=== PATIENT | male | born 1940 | race Caucasian/White ===

== ENCOUNTER 2019-08-17 13:53 | Inpatient (IN) | payer MEDICARE, BC ==
[2019-08-17] MEDS ORDERED: SODIUM CHLORIDE 0.9% 500 ML 500 ML IV STA (14:12)
[2019-08-17] MEDS ORDERED: ADENOSINE 3 MG/ML 2 ML VIAL IVP STA ×2 (14:12→14:26)
--- NOTE | 2019-08-17 14:15 | ED ---
General Adult HPI - General Chief complaint: Shortness of Breath Stated complaint: SOB Time Seen by Provider: 08/17/19 14:01 Source: patient Mode of arrival: wheelchair Limitations: no limitations - History of Present Illness Initial comments: Dictation was produced using [employer] dictation software. please excuse any grammatical, word or spelling errors. This patient was cared for during a federal and state declared state of emergency secondary to Covid 19 Chief Complaint: 79 y oMale past medical history asthma, heart failure, COPD, hypertension presents with dyspnea History of Present Illness: 79-year-old male he [facility] for his [facility] when all of a sudden he became short of breath. Patient states that he does not feel short of breath. He denies any chest pain at this time. Patient does have a history of COPD wears oxygen at home. He does also have a history of CHF. Denies any orthopnea. He states that he did feel short of breath earlier and it began acutely. He has no pain complaints. Denies any fever, chills or night sweats. Denies any coughing. The ROS documented in this emergency department record has been reviewed and confirmed by me. Those systems with pertinent positive or negative responses have been documented in the HPI. All other systems are other negative and/or noncontributory. PHYSICAL EXAM: General Impression: Alert and oriented x3, not in acute distress HEENT: Normocephalic atraumatic, extra-ocular movements intact, pupils equal and reactive to light bilaterally, mucous membranes moist. Cardiovascular: Tachycardic, heart rate 144 on the monitor Chest: Able to complete full sentences, no retractions, no tachypnea, lungs clear to auscultation bilaterally Abdomen: abdomen soft, non-tender, non-distended, no organomegaly Musculoskeletal: Pulses present and equal in all extremities, no peripheral edema Motor: no focal deficits noted Neurological: CN II-XII grossly intact, no focal motor or sensory deficits noted Skin: Intact with no visualized rashes Psych: Normal affect and mood ED course: 79-year-old male presents with chief complaint of shortness of breath as upon arrival shows heart rate of 145, O2 saturation 89% on room air. Patient wears oxygen 3 L at home. Patient is satting well with 3 L nasal cannula. Blood pressure is 91/63. EKG shows supraventricular tachycardia. Patient given adenosine for chemical cardioversion. During AV block it appeared that patient is in atrial flutter. Patient started on Cardizem.Laboratory evaluation obtained. CBC, coag panel, metabolic panel is unremarkable. Cardiac enzymes negative. Prematurity peptide is 6880. No old labs to follow a trend. Chest x-ray obtained showing pulmonary venous congestion with mild cardiomegaly. 7 for CHF. Patient is not dyspneic at this time. Does appear to be well currently. Medications are reviewed patient given 40 mg of Lasix for concern of CHF exacerbation. Patient doing well Cardizem. Patient be admitted to telemetry with cardiac consultation. Discussed patient case with Dr. Guadalupe who is willing to accept patients care. It is unclear when patient's symptoms started. Patient started on heparin. EKG interpretation: Ventricular rate 144, SVT, right bundle, QRS 112, QTc 575. No HI prolongation, no QTC prolongation, no ST or T-wave changes noted. No old EKG for comparison - Related Data Home Medications Medication Instructions Recorded Confirmed Abatacept/Maltose [Orencia] 750 mg IV DIRECTED 07/04/13 03/23/16 Albuterol Sulfate [Ventolin HFA] 1 - 2 puff INHALATION Q6H PRN 07/04/13 03/23/16 Finasteride [Proscar] 5 mg PO DAILY 07/04/13 03/23/16 Fluticasone/Salmeterol [Advair 500 mcg INHALATION BID 07/04/13 03/23/16 500-50 Diskus] Gabapentin [Neurontin] 600 mg PO QID 07/04/13 03/23/16 Ibuprofen [Motrin] 600 mg PO DIRECTED PRN 07/04/13 03/23/16 Montelukast [Singulair] 10 mg PO HS 07/04/13 03/23/16 cloNIDine HCL [Catapres] 1 cap PO DAILY 07/04/13 03/23/16 metFORMIN HCL [Glucophage] 1,000 mg PO BID 07/04/13 03/23/16 Lovastatin [Mevacor] 20 mg PO DAILY 02/19/14 03/23/16 amLODIPine [Norvasc] 2.5 mg PO DAILY 02/19/14 03/23/16 Glimepiride [Amaryl] 1 tab PO BID 12/25/14 03/23/16 valACYclovir HCL [Valtrex] 1 tab PO TID 11/25/15 03/23/16 Levothyroxine Sodium [Synthroid] 25 mcg PO DAILY 02/21/16 03/23/16 Allergies Allergy/AdvReac Type Severity Reaction Status Date / Time infliximab [From Remicade] Allergy Anaphylaxis Verified 08/17/19 13:58 Review of Systems ROS Statement: Those systems with pertinent positive or pertinent negative responses have been documented in the HPI. ROS Other: All systems not noted in ROS Statement are negative. Past Medical History Past Medical History: Asthma, Heart Failure, COPD, Diabetes Mellitus, Hyperlipidemia, Hypertension, Prostate Disorder, Rheumatoid Arthritis (RA) Additional Past Medical History / Comment(s): VERTIGO, PSORIASIS, SHINGLES 2007, SARCOIDOSIS History of Any Multi-Drug Resistant Organisms: None Reported Past Surgical History: Appendectomy Additional Past Surgical History / Comment(s): LUNG BIOPSY, TESTICLE REMOVED, R&L SHOULDER ARTHROSCOPY Past Anesthesia/Blood Transfusion Reactions: No Reported Reaction Past Psychological History: No Psychological Hx Reported Smoking Status: Never smoker - Past Family History Mother Family Medical History: Congestive Heart Failure (CHF) General Exam Limitations: no limitations Course Vital Signs 08/17/19 13:57 Temperature 98.1 F Pulse Rate 145 H Respiratory 20 Rate Blood Pressure 91/63 O2 Sat by Pulse 89 L Oximetry Medical Decision Making - Lab Data Result diagrams: 08/17/19 14:16 08/17/19 14:16 Lab Results 08/17/19 08/17/19 08/17/19 Range/Units 14:16 14:16 14:16 WBC 8.5 (3.8-10.6) k/uL RBC 4.58 (4.30-5.90) m/uL Hgb 13.1 (13.0-17.5) gm/dL Hct 42.6 (39.0-53.0) % MCV 93.0 (80.0-100.0) fL MCH 28.5 (25.0-35.0) pg MCHC 30.7 L (31.0-37.0) g/dL RDW 14.4 (11.5-15.5) % Plt Count 394 (150-450) k/uL Neutrophils % 70 % Lymphocytes % 19 % Monocytes % 7 % Eosinophils % 2 % Basophils % 1 % Neutrophils # 5.9 (1.3-7.7) k/uL Lymphocytes # 1.6 (1.0-4.8) k/uL Monocytes # 0.6 (0-1.0) k/uL Eosinophils # 0.2 (0-0.7) k/uL Basophils # 0.0 (0-0.2) k/uL Hypochromasia Slight PT 10.5 (9.0-12.0) sec INR 1.0 (<1.2) APTT 24.0 (22.0-30.0) sec Sodium 136 L (137-145) mmol/L Potassium 3.9 (3.5-5.1) mmol/L Chloride 100 (98-107) mmol/L Carbon Dioxide 23 (22-30) mmol/L Anion Gap 13 mmol/L BUN 16 (9-20) mg/dL Creatinine 0.85 (0.66-1.25) mg/dL Est GFR (CKD-EPI)AfAm >90 (>60 ml/min/1.73 sqM) Est GFR (CKD-EPI)NonAf 82 (>60 ml/min/1.73 sqM) Glucose 148 H (74-99) mg/dL Calcium 10.0 (8.4-10.2) mg/dL Magnesium 2.1 (1.6-2.3) mg/dL Total Bilirubin 0.5 (0.2-1.3) mg/dL AST 52 (17-59) U/L ALT 22 (4-49) U/L Alkaline Phosphatase 95 (38-126) U/L Troponin I (0.000-0.034) ng/mL NT-Pro-B Natriuret Pep pg/mL Total Protein 6.8 (6.3-8.2) g/dL Albumin 3.8 (3.5-5.0) g/dL 08/17/19 08/17/19 Range/Units 14:16 14:16 WBC (3.8-10.6) k/uL RBC (4.30-5.90) m/uL Hgb (13.0-17.5) gm/dL Hct (39.0-53.0) % MCV (80.0-100.0) fL MCH (25.0-35.0) pg MCHC (31.0-37.0) g/dL RDW (11.5-15.5) % Plt Count (150-450) k/uL Neutrophils % % Lymphocytes % % Monocytes % % Eosinophils % % Basophils % % Neutrophils # (1.3-7.7) k/uL Lymphocytes # (1.0-4.8) k/uL Monocytes # (0-1.0) k/uL Eosinophils # (0-0.7) k/uL Basophils # (0-0.2) k/uL Hypochromasia PT (9.0-12.0) sec INR (<1.2) APTT (22.0-30.0) sec Sodium (137-145) mmol/L Potassium (3.5-5.1) mmol/L Chloride (98-107) mmol/L Carbon Dioxide (22-30) mmol/L Anion Gap mmol/L BUN (9-20) mg/dL Creatinine (0.66-1.25) mg/dL Est GFR (CKD-EPI)AfAm (>60 ml/min/1.73 sqM) Est GFR (CKD-EPI)NonAf (>60 ml/min/1.73 sqM) Glucose (74-99) mg/dL Calcium (8.4-10.2) mg/dL Magnesium (1.6-2.3) mg/dL Total Bilirubin (0.2-1.3) mg/dL AST (17-59) U/L ALT (4-49) U/L Alkaline Phosphatase (38-126) U/L Troponin I <0.012 (0.000-0.034) ng/mL NT-Pro-B Natriuret Pep 6880 pg/mL Total Protein (6.3-8.2) g/dL Albumin (3.5-5.0) g/dL Disposition Clinical Impression: Atrial flutter Disposition: ADMITTED IP TO THIS HOSP Condition: Fair Referrals: Jim Candelario DO [REFERRING] - 1-2 days Decision Time: 15:21
[2019-08-17 14:30] LABS: Basophils % (A) 1 %; Eosinophils # (A) 0.2 k/uL (0-0.7); Eosinophils % (A) 2 %; HCT 42.6 % (39.0-53.0); HGB 13.1 gm/dL (13.0-17.5); Hypochromasia Slight; Lymphocytes # (A) 1.6 k/uL (1.0-4.8); Lymphocytes % (A) 19 %; MCH 28.5 pg (25.0-35.0); MCHC 30.7 g/dL (31.0-37.0); Mean Platelet Volume 7.8; Monocytes # (A) 0.6 k/uL (0-1.0); Monocytes % (A) 7 %; Neutrophils # (A) 5.9 k/uL (1.3-7.7); Neutrophils % (A) 70 %; Platelet Count 394 k/uL (150-450); RBC 4.58 m/uL (4.30-5.90); RDW 14.4 % (11.5-15.5); WBC 8.5 k/uL (3.8-10.6)
[2019-08-17] MEDS ORDERED: DILTIAZEM DRIP BOLUS FROM BAG 1 MG SOLN IV ONE (14:33)
[2019-08-17 14:42] LABS: ALT 22 U/L (4-49); AST 52 U/L (17-59); African American GFR (CKD) >90 (>60 ml/min/1.73 sqM); Albumin 3.8 g/dL (3.5-5.0); Alkaline Phosphatase 95 U/L (38-126); Anion Gap 13 mmol/L; Blood Urea Nitrogen 16 mg/dL (9-20); Carbon Dioxide 23 mmol/L (22-30); Chloride 100 mmol/L (98-107); Glucose 148 mg/dL (74-99); Magnesium 2.1 mg/dL (1.6-2.3); Non-African American GFR(CKD) 82 (>60 ml/min/1.73 sqM); Potassium 3.9 mmol/L (3.5-5.1); Sodium 136 mmol/L (137-145); Total Bilirubin 0.5 mg/dL (0.2-1.3); Total Protein 6.8 g/dL (6.3-8.2)
--- NOTE | 2019-08-17 14:43 | XR ---
EXAMINATION TYPE: XR chest 1V portable DATE OF EXAM: 08/17/2019 HISTORY: Shortness of breath. COMPARISON: None. TECHNIQUE: Single view of the chest is submitted. FINDINGS: Demonstrated are scattered senescent parenchymal change. Perihilar and basilar infiltrates with small effusions. Pulmonary venous congestion with mild cardiom egaly. The findings could be on the basis of congestive failure although underlying infiltrates of ot her etiology not excluded. Correlate clinically. Hilar and mediastinal structures are within normal limits. Degenerative changes are seen of the dorsal spine. IMPRESSION: 1. Perihilar and basilar infiltrates with small effusions. Pulmonary venous congestion with mild car diomegaly. The findings could be on the basis of congestive failure although underlying infiltrates o f other etiology not excluded. Correlate clinically.
[2019-08-17 14:45] LABS: Prothrombin Time 10.5 sec (9.0-12.0)
[2019-08-17] MEDS ORDERED: HEPARIN SODIUM,PORCINE 5,000 UNIT/ML 1 ML VIAL IV ONE (14:55)
[2019-08-17] MEDS ORDERED: HEPARIN SODIUM,PORCINE 5,000 UNIT/ML 1 ML VIAL IV PRN (14:55)
[2019-08-17] MEDS: DILTIAZEM 125 MG in SODIUM CHLORIDE 0.9% 100 ML IV SCH (15:02)
[2019-08-17] MEDS ORDERED: FUROSEMIDE 10 MG/ML 4 ML VIAL IV STA (15:20)
[2019-08-17] MEDS: HEPARIN SOD,PORK IN 0.45% NACL 25,000 UNIT in 0.45% NACL 1 250ML.BAG IV SCH (15:21)
[2019-08-17] MEDS ORDERED: ONDANSETRON 4 MG/2 ML VIAL IVP PRN (15:21)
[2019-08-17] MEDS ORDERED: ACETAMINOPHEN TAB 325 MG TAB PO PRN (15:21)
[2019-08-17] MEDS ORDERED: NALOXONE 0.4 MG/ML 1 ML VIAL IV PRN (15:21)
[2019-08-17] MEDS: SODIUM CHLORIDE 0.9% 1,000 ML IV SCH (15:37)
[2019-08-17] MEDS ORDERED: ALBUTEROL NEBULIZED 2.5 MG/3 ML INHALATION PRN (17:54)
--- NOTE | 2019-08-17 17:55 | P.HPIM ---
History of Present Illness This is a pleasant 79-year-old the female was sent in from infusion center where he was receiving Orencia for rheumatoid arthritis. Patient was sent in because of from tachycardia. Patient is found to be in supra ventricular tachycardia and received adenosine 2 doses after which patient converted to atrial flutter followed by in and out of atrial fibrillation. Patient was complaining of shortness of breath denied any significant orthopnea paroxysmal nocturnal dyspnea. Patient did have mildly elevated JVD chest x-ray showed bilateral pleural effusion consistent with mild pulmonary edema with elevated BNP patient received 1 dose of Lasix patient doesn't have known history of metastatic failure although isn't clear as of oxygen for sarcoidosis and rheumatoid arthritis related lung disease. Patient denied any smoking history. Patient denied any cough fever chills. Chest x-ray did not show any pneumonic process. Review of Systems REVIEW OF SYSTEMS: CONSTITUTIONAL: No fever, no malaise, no fatigue. HEENT: No recent visual problems or hearing problems. Denied any sore throat. CARDIOVASCULAR: No chest pain, orthopnea, PND, no palpitations, no syncope. PULMONARY: no cough, no hemoptysis. GASTROINTESTINAL: No diarrhea, no nausea, no vomiting, no abdominal pain. NEUROLOGICAL: No headaches, no weakness, no numbness. HEMATOLOGICAL: Denies any bleeding or petechiae. GENITOURINARY: Denies any burning micturition, frequency, or urgency. MUSCULOSKELETAL/RHEUMATOLOGICAL: Denies any joint pain, swelling, or any muscle pain. ENDOCRINE: Denies any polyuria or polydipsia. The rest of the 14-point review of systems is negative. Past Medical History Past Medical History: Asthma, Heart Failure, COPD, Diabetes Mellitus, Hyperlipidemia, Hypertension, Prostate Disorder, Rheumatoid Arthritis (RA) Additional Past Medical History / Comment(s): VERTIGO, PSORIASIS, SHINGLES 2008, SARCOIDOSIS History of Any Multi-Drug Resistant Organisms: None Reported Past Surgical History: Appendectomy Additional Past Surgical History / Comment(s): LUNG BIOPSY, TESTICLE REMOVED, R&L SHOULDER ARTHROSCOPY Past Anesthesia/Blood Transfusion Reactions: No Reported Reaction Past Psychological History: No Psychological Hx Reported Smoking Status: Never smoker - Past Family History Mother Family Medical History: Congestive Heart Failure (CHF) Medications and Allergies Home Medications Medication Instructions Recorded Confirmed Type Abatacept/Maltose [Orencia] 1 dose IV Q28D 07/04/13 08/17/19 History Albuterol Sulfate [Ventolin HFA] 2 puff INHALATION RT-QID PRN 07/04/13 08/17/19 History Montelukast [Singulair] 10 mg PO HS 07/04/13 08/17/19 History Levothyroxine Sodium [Synthroid] 25 mcg PO DAILY 02/21/16 08/17/19 History Budesonide/Formoterol Fumarate 2 puff INHALATION RT-BID 08/17/19 08/17/19 History [Symbicort 160-4.5 Mcg Inhaler] Furosemide [Lasix] 20 mg PO DAILY 08/17/19 08/17/19 History Gabapentin 600 mg PO Q6H 08/17/19 08/17/19 History Lovastatin [Mevacor] 20 mg PO HS 08/17/19 08/17/19 History glipiZIDE [Glucotrol] 5 mg PO AC-BID 08/17/19 08/17/19 History metFORMIN HCL 1,000 mg PO BID 08/17/19 08/17/19 History Allergies Allergy/AdvReac Type Severity Reaction Status Date / Time infliximab [From Remicade] Allergy Anaphylaxis Verified 08/17/19 15:42 Physical Exam Vitals: Vital Signs Temp Pulse Resp BP Pulse Ox 08/17/19 17:26 118 H 18 111/80 96 08/17/19 16:27 98.3 F 117 H 18 126/96 98 08/17/19 15:43 18 08/17/19 15:35 99.0 F 123 H 18 101/78 97 08/17/19 13:57 98.1 F 145 H 20 91/63 89 L Intake and Output 08/17/19 08/17/19 08/17/19 06:59 14:59 22:59 Other: # Voids 1 Weight 64.41 kg PHYSICAL EXAMINATION: GENERAL: The patient is alert and oriented x3, not in any acute distress. Thin built male HEENT: Pupils are round and equally reacting to light. EOMI. No scleral icterus. No conjunctival pallor. Normocephalic, atraumatic. No pharyngeal erythema. No thyromegaly. CARDIOVASCULAR: S1 and S2 present. No murmurs, rubs, or gallops. Tachycardia, regularly irregular rhythm PULMONARY: Chest is clear to auscultation, no wheezing or crackles. ABDOMEN: Soft, nontender, nondistended, normoactive bowel sounds. No palpable organomegaly. MUSCULOSKELETAL: No joint swelling or deformity. EXTREMITIES: No cyanosis, clubbing, or pedal edema. NEUROLOGICAL: Gross neurological examination did not reveal any focal deficits. SKIN: No rashes. Results CBC & Chem 7: 08/17/19 14:16 08/17/19 14:16 Labs: Abnormal Lab Results - Last 24 Hours (Table) 08/17/19 08/17/19 Range/Units 14:16 14:16 MCHC 30.7 L (31.0-37.0) g/dL Sodium 136 L (137-145) mmol/L Glucose 148 H (74-99) mg/dL Assessment and Plan Plan: -New-onset atrial fibrillation, flutter, supra to tachycardia: Patient will require anticoagulation. I do have a concern of heart failure because of which am going to hold off on Cardizem patient was started on metoprolol oral if heart rate is not controlled with metoprolol patient may to be digitalized in the prone may not be a good choice because of his history of sarcoidosis and lung disease related to sarcoidosis and had arthritis. Possible congestive heart failure possibility of systolic dysfunction unsure whether acute or chronic echocardiogram will be obtained patient will be started on low-dose of Lasix -Chronic hypoxic respiratory failure. 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 -Type 2 diabetes mellitus -Hyperlipidemia -Hypertension benign prostatic hypertrophy For above-mentioned chronic problems patient will be resumed and continued on appropriate home medications
[2019-08-17] MEDS: SYMBICORT 160-4.5 MCG INHALER INHALATION SCH (19:44)
[2019-08-17] MEDS: GABAPENTIN 300 MG CAP PO SCH ×2 (20:45→22:53)
[2019-08-17 20:52] LABS: Glucose,Whole Blood 108 mg/dL (75-99)
[2019-08-17] MEDS: metFORMIN 500 MG TAB PO SCH (21:56)
[2019-08-17] MEDS: MONTELUKAST 10 MG TAB PO SCH (21:56)
[2019-08-17] MEDS: ATORVASTATIN 10 MG TAB PO SCH (21:56)
[2019-08-17] MEDS: FUROSEMIDE 10 MG/ML 2 ML VIAL IV SCH (21:56)
[2019-08-17] MEDS: METOPROLOL TARTRATE 50 MG TAB PO SCH (21:56)
[2019-08-18 06:31] LABS: Glucose,Whole Blood 101 mg/dL (75-99)
[2019-08-18] MEDS: GABAPENTIN 300 MG CAP PO SCH ×4 (06:35→23:30)
[2019-08-18] MEDS: glipiZIDE 5 MG TAB PO SCH ×2 (06:35→16:43)
[2019-08-18] MEDS: LEVOTHYROXINE 25 MCG TAB PO SCH (06:35)
[2019-08-18] MEDS: metFORMIN 500 MG TAB PO SCH ×2 (06:35→16:41)
[2019-08-18] MEDS: SYMBICORT 160-4.5 MCG INHALER INHALATION SCH ×2 (07:15→19:43)
[2019-08-18] MEDS: FUROSEMIDE 10 MG/ML 2 ML VIAL IV SCH ×2 (09:36→20:36)
[2019-08-18] MEDS: METOPROLOL TARTRATE 50 MG TAB PO SCH ×2 (09:37→20:36)
--- NOTE | 2019-08-18 11:33 | P.CRDCN ---
History of Present Illness Consult date: 08/18/19 History of present illness: This is a 79-year-old gentleman who was receiving infusion of Orencia for his rheumatoid arthritis. Apparently he complained of having palpitations and shortness of breath. He was sent to the emergency room and he was found to be in atrial flutter with fast ventricular response. He was treated with IV adenosine and subsequently started on IV Cardizem. Patient's heart rate is controlled at this time. He denied any chest pain. No complaints of orthopnea or paroxysmal nocturnal dyspnea. He chest x-ray showed evidence of pleural effusion and right pulmonary edema. Patient had elevated BNP level.. Patient is feeling better at the time of my examination. Doesn't appear to be in acute distress. Patient had an echocardiogram today. Patient also is on anticoagulation therapy. Depending upon the LV function, we'll make consider possible cardioversion. Meanwhile patient will be continued on current medical therapy. No complaints of any fever, chills or chest pain Review of Systems As per the chart Past Medical History Past Medical History: Asthma, Heart Failure, COPD, Diabetes Mellitus, Hyperlipidemia, Hypertension, Prostate Disorder, Rheumatoid Arthritis (RA) Additional Past Medical History / Comment(s): VERTIGO, PSORIASIS, SHINGLES 2007, SARCOIDOSIS History of Any Multi-Drug Resistant Organisms: None Reported Past Surgical History: Appendectomy Additional Past Surgical History / Comment(s): LUNG BIOPSY, TESTICLE REMOVED, R&L SHOULDER ARTHROSCOPY Past Anesthesia/Blood Transfusion Reactions: No Reported Reaction Past Psychological History: No Psychological Hx Reported Smoking Status: Never smoker - Past Family History Mother Family Medical History: Congestive Heart Failure (CHF) Medications and Allergies Home Medications Medication Instructions Recorded Confirmed Type Abatacept/Maltose [Orencia] 1 dose IV Q28D 07/04/13 08/17/19 History Albuterol Sulfate [Ventolin HFA] 2 puff INHALATION RT-QID PRN 07/04/13 08/17/19 History Montelukast [Singulair] 10 mg PO HS 07/04/13 08/17/19 History Levothyroxine Sodium [Synthroid] 25 mcg PO DAILY 02/21/16 08/17/19 History Budesonide/Formoterol Fumarate 2 puff INHALATION RT-BID 08/17/19 08/17/19 History [Symbicort 160-4.5 Mcg Inhaler] Furosemide [Lasix] 20 mg PO DAILY 08/17/19 08/17/19 History Gabapentin 600 mg PO Q6H 08/17/19 08/17/19 History Lovastatin [Mevacor] 20 mg PO HS 08/17/19 08/17/19 History glipiZIDE [Glucotrol] 5 mg PO AC-BID 08/17/19 08/17/19 History metFORMIN HCL 1,000 mg PO BID 08/17/19 08/17/19 History Allergies Allergy/AdvReac Type Severity Reaction Status Date / Time infliximab [From Remicade] Allergy Anaphylaxis Verified 08/17/19 15:42 Physical Exam Vitals: Vital Signs Temp Pulse Pulse Resp BP BP Pulse Ox 08/18/19 07:15 99 08/18/19 03:36 98.5 F 90 18 98/67 98 08/18/19 00:00 98.2 F 78 20 106/74 100 08/17/19 20:00 98.5 F 114 H 20 116/75 96 08/17/19 17:26 118 H 18 111/80 96 08/17/19 16:27 98.3 F 117 H 18 126/96 98 08/17/19 15:43 18 08/17/19 15:35 99.0 F 123 H 18 101/78 97 08/17/19 13:57 98.1 F 145 H 20 91/63 89 L Intake and Output 08/17/19 08/18/19 08/18/19 22:59 06:59 14:59 Intake Total 57.71 308.83 Output Total 400 Balance 57.71 -91.17 Intake: Intake, IV Titration 57.71 68.83 Amount Heparin Sod,Pork in 0.45% 57.71 68.83 NaCl 25,000 unit In 0.45 % NaCl 1 250ml.bag @ 12 UNITS/KG/HR 7.729 mls/hr IV .Q24H [facility] Rx#: [id number] Oral 240 Output: Urine 400 Other: Voiding Method Urinal Urinal Diaper Diaper # Voids 1 2 1 Weight 64.41 kg 63 kg GENERAL EXAM: Patient is alert and oriented and doesn't appear to be in any acute distress HEENT: Normocephalic. Normal reaction of pupils, equal size, normal range of extraocular motion. No erythema or exudates in the throat. NECK: Mild JVD CHEST: No chest wall deformity. LUNGS: Diminished breath sounds. HEART: S1 and S2 normal. Irregular rhythm ABDOMEN: No hepatosplenomegaly, normal bowel sounds, no guarding or rigidity. SKIN: No rashes CENTRAL NERVOUS SYSTEM: No focal deficits. EXTREMITIES: No cyanosis, clubbing or edema. Results 08/17/19 14:16 08/17/19 14:16 Cardiac Enzymes 08/17/19 08/17/19 Range/Units 14:16 14:16 AST 52 (17-59) U/L Troponin I <0.012 (0.000-0.034) ng/mL Coagulation 08/17/19 08/17/19 08/18/19 Range/Units 14:16 22:03 05:37 PT 10.5 (9.0-12.0) sec APTT 24.0 35.2 H 42.4 H (22.0-30.0) sec CBC 08/17/19 Range/Units 14:16 WBC 8.5 (3.8-10.6) k/uL RBC 4.58 (4.30-5.90) m/uL Hgb 13.1 (13.0-17.5) gm/dL Hct 42.6 (39.0-53.0) % Plt Count 394 (150-450) k/uL Comprehensive Metabolic Panel 08/17/19 Range/Units 14:16 Sodium 136 L (137-145) mmol/L Potassium 3.9 (3.5-5.1) mmol/L Chloride 100 (98-107) mmol/L Carbon Dioxide 23 (22-30) mmol/L BUN 16 (9-20) mg/dL Creatinine 0.85 (0.66-1.25) mg/dL Glucose 148 H (74-99) mg/dL Calcium 10.0 (8.4-10.2) mg/dL AST 52 (17-59) U/L ALT 22 (4-49) U/L Alkaline Phosphatase 95 (38-126) U/L Total Protein 6.8 (6.3-8.2) g/dL Albumin 3.8 (3.5-5.0) g/dL Current Medications Generic Name Dose Route Start Last Admin Trade Name Freq PRN Reason Stop Dose Admin Acetaminophen 650 mg 08/17/19 15:21 Tylenol Tab PO Q6HR PRN Mild Pain or Fever > 100.5 Albuterol Sulfate 2.5 mg 08/17/19 17:54 Ventolin Nebulized INHALATION RT-QID PRN Shortness Of Breath Atorvastatin Calcium 10 mg 08/17/19 21:00 08/17/19 21:56 Lipitor PO 10 mg HS WILDA Administration Budesonide/Formoterol Fumarate 2 puff 08/17/19 20:00 08/18/19 07:15 Symbicort 160-4.5 Mcg Inhaler INHALATION 2 puff RT-BID WILDA Administration Furosemide 20 mg 08/17/19 21:00 08/18/19 09:36 Lasix IV 20 mg Q12HR WILDA Administration Gabapentin 600 mg 08/17/19 18:00 08/18/19 06:35 Neurontin PO 600 mg Q6HR WILDA Administration Glipizide 5 mg 08/18/19 07:30 08/18/19 06:35 Glucotrol PO 5 mg AC-BID WILDA Administration Heparin Sodium (Porcine) 0 unit 08/17/19 14:55 Heparin IV PER PROTOCOL PRN Low PTT Protocol Diltiazem HCl 125 mg/ Sodium 125 mls @ 5 mls/hr 08/17/19 14:45 08/17/19 15:02 Chloride IV 5 mg/hr .Q24H WILDA 5 mls/hr Administration 5 MG/HR Heparin Sodium/Sodium Chloride 250 mls @ 7.729 mls/hr 08/17/19 15:00 08/18/19 06:27 25,000 unit/ Sodium Chloride IV 16 units/kg/hr .Q24H WILDA 10.306 mls/hr Titration Protocol 12 UNITS/KG/HR Sodium Chloride 1,000 mls @ 20 mls/hr 08/17/19 15:30 08/17/19 15:37 Saline 0.9% IV 20 mls/hr .Q24H WILDA Administration Levothyroxine Sodium 25 mcg 08/18/19 06:30 08/18/19 06:35 Synthroid PO 25 mcg DAILY@0630 WILDA Administration Metformin HCl 1,000 mg 08/17/19 21:00 08/18/19 06:35 Glucophage PO 1,000 mg BID-W/MEALS WILDA Administration Metoprolol Tartrate 50 mg 08/17/19 21:00 08/18/19 09:37 Lopressor PO 50 mg BID WILDA Administration Montelukast Sodium 10 mg 08/17/19 21:00 08/17/19 21:56 Singulair PO 10 mg HS WILDA Administration Naloxone HCl 0.2 mg 08/17/19 15:21 Narcan IV Q2M PRN Opioid Reversal Ondansetron HCl 4 mg 08/17/19 15:21 Zofran IVP Q8HR PRN Nausea And Vomiting Intake and Output 08/17/19 08/18/19 08/18/19 22:59 06:59 14:59 Intake Total 57.71 308.83 Output Total 400 Balance 57.71 -91.17 Intake: Intake, IV Titration 57.71 68.83 Amount Heparin Sod,Pork in 0.45% 57.71 68.83 NaCl 25,000 unit In 0.45 % NaCl 1 250ml.bag @ 12 UNITS/KG/HR 7.729 mls/hr IV .Q24H [facility] Rx#: [id number] Oral 240 Output: Urine 400 Other: Voiding Method Urinal Urinal Diaper Diaper # Voids 1 2 1 Weight 64.41 kg 63 kg 08/17/19 14:16 08/17/19 14:16 - Imaging and Cardiology Comment: Chest x-ray showed evidence of possible CHF EKG Interpretations (text) Atrial flutter with rapid ventricular response Assessment and Plan (1) Acute systolic CHF (congestive heart failure) Current Visit: Yes Status: Acute Code(s): I50.21 - ACUTE SYSTOLIC (CONGESTIVE) HEART FAILURE SNOMED Code(s): 000181501 (2) Atrial flutter Current Visit: Yes Status: Acute Code(s): I48.92 - UNSPECIFIED ATRIAL FLUTTER SNOMED Code(s): 7807520 (3) Rheumatoid arthritis Current Visit: Yes Status: Acute Code(s): M06.9 - RHEUMATOID ARTHRITIS, UNSPECIFIED SNOMED Code(s): 31504028 Plan: Patient is on IV Cardizem and anticoagulation. We'll get an echocardiogram done. We will start him on by mouth beta lencho. May consider LOGAN cardioversion.
[2019-08-18 12:26] LABS: Glucose,Whole Blood 57 mg/dL (75-99)
[2019-08-18 13:29] LABS: Glucose,Whole Blood 74 mg/dL (75-99)
[2019-08-18] MEDS ORDERED: ALPRAZolam 0.25 MG TAB PO PRN (14:55)
[2019-08-18] MEDS ORDERED: IPRATROPIUM-ALBUTEROL 3 ML NEB INHALATION PRN (14:55)
[2019-08-18] MEDS ORDERED: HYDROcodone/APAP 5-325MG 1 EACH TAB PO PRN (14:55)
[2019-08-18] MEDS: DILTIAZEM 125 MG in SODIUM CHLORIDE 0.9% 100 ML IV SCH (16:29)
[2019-08-18] MEDS: HEPARIN SOD,PORK IN 0.45% NACL 25,000 UNIT in 0.45% NACL 1 250ML.BAG IV SCH ×2 (16:30→16:49)
--- NOTE | 2019-08-18 16:36 | PN ---
PROGRESS NOTE DATE OF SERVICE: This 79-year-old gentleman with atrial flutter with fast ventricular rate was treated with IV Cardizem and adenosine. The patient was also suspected of CHF also. The most recent chest x-ray which was reviewed by me showed evidence of increased bronchial vascularity and some atelectasis. The patient is being closely monitored. PAST MEDICAL HISTORY: Reviewed. REVIEW OF SYSTEMS: Could not be taken as the patient is confused. CURRENT MEDICATIONS: 1. Tylenol. 2. Ventolin. 3. Symbicort. 4. Diltiazem. 5. Lasix. 6. Glucotrol. 7. Heparin. 8. Lopressor. 9. Singulair. 10.Narcan. 11.Zofran. PHYSICAL EXAM: Patient is alert, oriented x2. Pulse 102, blood pressure 97/66, respiration 16, temperature 97.5, pulse ox 99% on 3 liters. HEENT: Conjunctivae normal. Oral mucosa moist. NECK: No jugular venous distention. CARDIOVASCULAR: S1, S2, muffled. RESPIRATORY: Diminished breath sounds at the bases. Bilateral scattered rhonchi and crackles. ABDOMEN: Soft, nontender. LEGS: No edema, no swelling. NERVOUS SYSTEM: No focal deficits. LABS: Sodium 136, glucose 108. ASSESSMENT: 1. New onset atrial flutter status post Cardizem drip. 2. Possible congestive heart failure exacerbation, ejection fraction unknown. 3. Change in mental status and metabolic encephalopathy. 4. Possible bilateral atelectasis. 5. Hyponatremia. 6. History of asthma. 7. History of congestive heart failure .. 8. History of chronic obstructive pulmonary disease. 9. Diabetes mellitus type 2 uncontrolled with hypoglycemia. 10.Hyperlipidemia. 11.Hypertension. 12.History of prostate disease. 13.History of rheumatoid arthritis. 14.History of vertigo. 15.History of psoriasis. 16.History of shingles. 17.History of sarcoidosis. 18.History of lung biopsy. 19.History of degenerative joint disease. 20.FULL CODE. RECOMMENDATIONS: In this 79-year-old gentleman who presented with multiple complex medical issues, we will monitor the patient closely. Continue the current management. I would recommend empiric antibiotics and bronchodilators. Otherwise UA. Guarded prognosis because of multiple complex medical issues. Further recommendations to follow. MMODL / IJN: [id number] /
[2019-08-18 17:07] LABS: Glucose,Whole Blood 95 mg/dL (75-99)
[2019-08-18] MEDS: SODIUM CHLORIDE 0.9% 1,000 ML IV SCH (17:33)
[2019-08-18 20:25] LABS: Glucose,Whole Blood 139 mg/dL (75-99)
[2019-08-18] MEDS: ATORVASTATIN 10 MG TAB PO SCH (20:36)
[2019-08-18] MEDS: MONTELUKAST 10 MG TAB PO SCH (20:36)
[2019-08-18] MEDS: IPRATROPIUM-ALBUTEROL 3 ML NEB INHALATION SCH (20:53)
[2019-08-19 06:22] LABS: Basophils # (A) 0.1 k/uL (0-0.2); Basophils % (A) 1 %; Eosinophils # (A) 0.2 k/uL (0-0.7); Eosinophils % (A) 3 %; HCT 40.7 % (39.0-53.0); HGB 12.8 gm/dL (13.0-17.5); Hypochromasia Slight; Lymphocytes # (A) 2.1 k/uL (1.0-4.8); Lymphocytes % (A) 28 %; MCH 29.5 pg (25.0-35.0); MCHC 31.5 g/dL (31.0-37.0); MCV 93.8 fL (80.0-100.0); Monocytes # (A) 0.5 k/uL (0-1.0); Monocytes % (A) 7 %; Neutrophils # (A) 4.4 k/uL (1.3-7.7); Neutrophils % (A) 59 %; Platelet Count 323 k/uL (150-450); RBC 4.34 m/uL (4.30-5.90); RDW 14.2 % (11.5-15.5); WBC 7.4 k/uL (3.8-10.6)
[2019-08-19 06:27] LABS: Glucose,Whole Blood 118 mg/dL (75-99)
[2019-08-19] MEDS: LEVOTHYROXINE 25 MCG TAB PO SCH (06:32)
[2019-08-19] MEDS: metFORMIN 500 MG TAB PO SCH ×2 (06:33→17:15)
[2019-08-19] MEDS: GABAPENTIN 300 MG CAP PO SCH ×4 (06:33→23:17)
[2019-08-19] MEDS: glipiZIDE 5 MG TAB PO SCH ×2 (06:33→17:15)
[2019-08-19] MEDS: PANTOPRAZOLE 40 MG TABLET PO SCH (06:34)
[2019-08-19 06:58] LABS: African American GFR (CKD) >90 (>60 ml/min/1.73 sqM); Anion Gap 9 mmol/L; Blood Urea Nitrogen 19 mg/dL (9-20); Calcium 8.8 mg/dL (8.4-10.2); Carbon Dioxide 24 mmol/L (22-30); Chloride 100 mmol/L (98-107); Glucose 106 mg/dL (74-99); Non-African American GFR(CKD) >90 (>60 ml/min/1.73 sqM); Potassium 4.2 mmol/L (3.5-5.1); Sodium 133 mmol/L (137-145)
[2019-08-19] MEDS: IPRATROPIUM-ALBUTEROL 3 ML NEB INHALATION SCH ×3 (07:18→20:50)
[2019-08-19] MEDS: SYMBICORT 160-4.5 MCG INHALER INHALATION SCH ×2 (07:35→20:50)
[2019-08-19] MEDS: METOPROLOL TARTRATE 50 MG TAB PO SCH ×2 (09:18→23:17)
[2019-08-19] MEDS: FUROSEMIDE 10 MG/ML 2 ML VIAL IV SCH ×2 (09:18→23:17)
--- NOTE | 2019-08-19 10:41 | P.PN ---
Subjective Progress Note Date: 08/26/19 This is a 79-year-old gentleman was admitted to the hospital with complaints of shortness of breath. Patient was found to be in atrial flutter. Currently patient is on metoprolol 50 mg by mouth twice a day. His heart rate is varying between 60-90. His blood pressure is running low. Complaints of exertional shortness of breath. Echocardiogram showed an ejection fraction about 40-45%. We'll continue current medical therapy. We'll repeat chest x-ray. If patient continues to have low blood pressure and shortness of breath in spite of rate control, we may consider cardioversion with LOGAN. Meanwhile, continue current medical therapy Objective - Vital Signs Vital signs: Vital Signs Temp 97.7 F 08/19/19 03:57 Pulse 63 08/19/19 08:00 Resp 16 08/19/19 08:00 BP 86/59 08/19/19 08:00 Pulse Ox 90 L 08/19/19 08:00 Intake & Output 08/18/19 08/19/19 08/19/19 18:59 06:59 18:59 Intake Total 106.839 Balance 106.839 Weight 54 kg Intake: Intake, IV Titration 106.839 Amount Heparin Sod,Pork in 0.45% 106.839 NaCl 25,000 unit In 0.45 % NaCl 1 250ml.bag @ 12 UNITS/KG/HR 7.729 mls/hr IV .Q24H [facility] Rx#: [id number] Other: Voiding Method Urinal Diaper Diaper # Voids 1 2 1 # Bowel Movements 1 - Exam GENERAL EXAM: Patient is alert and oriented and doesn't appear to be in any acu te distress HEENT: Normocephalic. Normal reaction of pupils, equal size, normal range of extraocular motion. No erythema or exudates in the throat. NECK: No masses, no nuchal rigidity. CHEST: No chest wall deformity. LUNGS: Equal air entry with no crackles or wheeze. HEART: S1 and S2 normal. Irregular rhythm ABDOMEN: No hepatosplenomegaly, normal bowel sounds, no guarding or rigidity. SKIN: No rashes CENTRAL NERVOUS SYSTEM: No focal deficits. EXTREMITIES: No cyanosis, clubbing or edema. - Labs CBC & Chem 7: 08/19/19 05:58 08/19/19 05:58 Labs: Abnormal Lab Results - Last 24 Hours (Table) 08/18/19 08/18/19 08/18/19 Range/Units 12:17 12:37 13:28 Hgb (13.0-17.5) gm/dL APTT 44.9 H (22.0-30.0) sec Sodium (137-145) mmol/L Creatinine (0.66-1.25) mg/dL Glucose (74-99) mg/dL POC Glucose (mg/dL) 57 L 74 L (75-99) mg/dL 08/18/19 08/19/19 08/19/19 Range/Units 20:23 05:58 05:58 Hgb 12.8 L (13.0-17.5) gm/dL APTT (22.0-30.0) sec Sodium 133 L (137-145) mmol/L Creatinine 0.61 L (0.66-1.25) mg/dL Glucose 106 H (74-99) mg/dL POC Glucose (mg/dL) 139 H (75-99) mg/dL 08/19/19 08/19/19 Range/Units 05:58 06:25 Hgb (13.0-17.5) gm/dL APTT 50.4 H (22.0-30.0) sec Sodium (137-145) mmol/L Creatinine (0.66-1.25) mg/dL Glucose (74-99) mg/dL POC Glucose (mg/dL) 118 H (75-99) mg/dL Assessment and Plan (1) Acute systolic CHF (congestive heart failure) Current Visit: Yes Status: Acute Code(s): I50.21 - ACUTE SYSTOLIC (CONGESTIVE) HEART FAILURE SNOMED Code(s): 431820338 (2) Atrial flutter Current Visit: Yes Status: Acute Code(s): I48.92 - UNSPECIFIED ATRIAL FLUTTER SNOMED Code(s): 3761602 (3) Rheumatoid arthritis Current Visit: Yes Status: Acute Code(s): M06.9 - RHEUMATOID ARTHRITIS, UNSPECIFIED SNOMED Code(s): 51123122 Plan: He still complains of exertional shortness of breath. Heart rate is controlled between 60 and 90. He is on anti-cognition therapy. He patient continues to symptomatic, may consider LOGAN cardioversion. His LV function by echo is 40-45%
[2019-08-19 11:20] VITALS: BMI 18.1
[2019-08-19 11:49] LABS: Glucose,Whole Blood 92 mg/dL (75-99)
--- NOTE | 2019-08-19 16:22 | PN ---
PROGRESS NOTE DATE OF SERVICE: 08/19/2019 This 79-year-old gentleman was admitted with atrial flutter with fast ventricular rate also on Cardizem and Adenosine. Patient suspected of CHF also. The most recent chest x-ray which was reviewed personally by me showed significant bilateral lesions. Cardiology planning a LOGAN on Wednesday. No chest pain. No palpitations. Past medical history reviewed. REVIEW OF SYSTEMS: CARDIOVASCULAR SYSTEM: As mentioned. RESPIRATORY: As mentioned earlier. GI no nausea. no dysuria. Nervous system: No numbness or weakness. Current medications are reviewed and include: 1. Tylenol. 2. [place] 5 mg. 3. DuoNeb. 4. Xanax. 5. Lipitor. 6. Symbicort. 7. Rocephin. 8. Cardizem. 9. Lasix. 10.Neurontin. 11.Glucotrol. 12.Heparin. 13.Synthroid. 14.Glucophage. 15.Lopressor. 16.Singular. 17.Narcan. 18.Zofran. 19.Protonix. PHYSICAL EXAM: Patient is alert and oriented x3. Pulse 89. Blood pressure 82/52. Respirations 16. Temperature normal. Pulse ox 99% on 3 L. HEENT: Conjunctivae normal. Oral mucosa moist. NECK is no jugular venous distention. No carotid bruit. No lymph node enlargement. CARDIOVASCULAR: S1, S2 muffled. RESPIRATORY: Breath sounds diminished in the bases. A few scattered rhonchi and crackles. ABDOMEN: Soft, nontender. LEGS are no edema. No swelling. NERVOUS SYSTEM: No focal deficits. LABS: WBC 7.5, hemoglobin 12.8. APTT 50.5. Sodium is 133. ASSESSMENT: 1. New onset atrial flutter, status post Cardizem drip. 2. Possible congestive heart failure acute exacerbation, ejection fraction unknown. 3. Change in mental status with acute metabolic encephalopathy. 4. Possible bilateral atelectasis, rule out pneumonia, possibly gram-negative. 5. Hyponatremia. 6. History of asthma. 7. History of congestive heart failure. 8. History of chronic obstructive pulmonary disease. 9. Diabetes type 2 uncontrolled with hypoglycemia. 10.Hyperlipidemia. 11.Hypertension. 12.History of prostate disease. 13.History of rheumatoid arthritis. 14.History of vertigo. 15.History of psoriasis. 16.History of shingles. 17.History of sarcoidosis. 18.History of lung biopsy. 19.History of degenerative joint disease. 20.FULL CODE. RECOMMENDATIONS AND DISCUSSION: In this 79-year-old gentleman who presented with multiple complex medical issues, we will monitor the patient closely. Continue the current medications, symptomatic and continue with current the bronchodilators. Continue with empiric antibiotics. Otherwise, closely follow with Cardiology. Possible LOGAN. Otherwise rate controlled, anticoagulation. The patient is on IV heparin. Guarded prognosis because of multiple complex medical issues. I would recommend repeat labs and further recommendations to follow.has been taken. Official report is pending at this time. MMODL / IJN: [id number] / ANDERSON
[2019-08-19 16:38] LABS: Glucose,Whole Blood 93 mg/dL (75-99)
[2019-08-19] MEDS: HEPARIN SOD,PORK IN 0.45% NACL 25,000 UNIT in 0.45% NACL 1 250ML.BAG IV SCH (17:14)
[2019-08-19 20:45] LABS: Glucose,Whole Blood 122 mg/dL (75-99)
[2019-08-19] MEDS: DILTIAZEM 125 MG in SODIUM CHLORIDE 0.9% 100 ML IV SCH (20:55)
[2019-08-19] MEDS: ATORVASTATIN 10 MG TAB PO SCH (21:38)
[2019-08-19] MEDS: MONTELUKAST 10 MG TAB PO SCH (21:38)
[2019-08-19] MEDS: SODIUM CHLORIDE 0.9% 1,000 ML IV SCH (21:38)
[2019-08-20 06:07] LABS: Basophils % (A) 1 %; Eosinophils # (A) 0.2 k/uL (0-0.7); Eosinophils % (A) 3 %; HCT 39.2 % (39.0-53.0); HGB 12.4 gm/dL (13.0-17.5); Hypochromasia Moderate; Lymphocytes # (A) 1.8 k/uL (1.0-4.8); Lymphocytes % (A) 28 %; MCH 29.7 pg (25.0-35.0); MCHC 31.6 g/dL (31.0-37.0); MCV 93.9 fL (80.0-100.0); Mean Platelet Volume 8.1; Monocytes # (A) 0.4 k/uL (0-1.0); Monocytes % (A) 7 %; Neutrophils # (A) 3.9 k/uL (1.3-7.7); Neutrophils % (A) 60 %; Platelet Count 319 k/uL (150-450); RBC 4.17 m/uL (4.30-5.90); WBC 6.5 k/uL (3.8-10.6)
[2019-08-20 06:08] LABS: Glucose,Whole Blood 60 mg/dL (75-99)
[2019-08-20] MEDS: LEVOTHYROXINE 25 MCG TAB PO SCH (06:10)
[2019-08-20] MEDS: GABAPENTIN 300 MG CAP PO SCH ×4 (06:10→23:31)
[2019-08-20] MEDS: PANTOPRAZOLE 40 MG TABLET PO SCH (06:11)
[2019-08-20 06:28] LABS: Glucose,Whole Blood 54 mg/dL (75-99)
[2019-08-20 06:43] LABS: African American GFR (CKD) >90 (>60 ml/min/1.73 sqM); Anion Gap 8 mmol/L; Blood Urea Nitrogen 20 mg/dL (9-20); Carbon Dioxide 23 mmol/L (22-30); Chloride 101 mmol/L (98-107); Glucose 62 mg/dL (74-99); Non-African American GFR(CKD) 88 (>60 ml/min/1.73 sqM); Potassium 4.3 mmol/L (3.5-5.1); Sodium 132 mmol/L (137-145)
[2019-08-20 06:46] LABS: Glucose,Whole Blood 143 mg/dL (75-99)
[2019-08-20] MEDS: SYMBICORT 160-4.5 MCG INHALER INHALATION SCH ×2 (08:23→19:57)
[2019-08-20] MEDS: IPRATROPIUM-ALBUTEROL 3 ML NEB INHALATION SCH ×3 (08:23→19:57)
[2019-08-20] MEDS: FUROSEMIDE 10 MG/ML 2 ML VIAL IV SCH ×2 (08:39→21:11)
[2019-08-20] MEDS: metFORMIN 500 MG TAB PO SCH ×2 (08:39→17:19)
[2019-08-20] MEDS: METOPROLOL TARTRATE 50 MG TAB PO SCH ×2 (08:39→21:10)
[2019-08-20] MEDS: glipiZIDE 5 MG TAB PO SCH ×2 (08:39→17:19)
--- NOTE | 2019-08-20 10:55 | P.PN ---
Subjective Progress Note Date: 08/20/19 This is a 79-year-old gentleman was admitted to the hospital with complaints of shortness of breath. Patient was found to be in atrial flutter. Currently patient is on metoprolol 50 mg by mouth twice a day. His heart rate is varying between 60-90. His blood pressure is running low. Complaints of exertional shortness of breath. Echocardiogram showed an ejection fraction about 40-45%. We'll continue current medical therapy. We'll repeat chest x-ray. If patient continues to have low blood pressure and shortness of breath in spite of rate control, we may consider cardioversion with LOGAN. Meanwhile, continue current medical therapy. 08/20/2019: This patient is relatively stable. Complaints of nausea and mild shortness of breath. Doesn't appear to be in acute distress. His heart rate is well controlled, but he continues to be in atrial flutter. Is on heparin. He could be constricted to switch to by mouth anticoagulation therapy. Patient may benefit from LOGAN cardioversion. We'll keep him nothing by mouth for the procedure for tomorrow. Further recommendations will depend upon the critical course Objective - Vital Signs Vital signs: Vital Signs Temp 98.0 F 08/20/19 03:32 Pulse 98 08/20/19 03:32 Resp 16 08/20/19 03:32 BP 102/65 08/20/19 03:32 Pulse Ox 99 08/20/19 03:32 Intake & Output 08/19/19 08/20/19 08/20/19 18:59 06:59 18:59 Intake Total 490 636.258 Output Total 450 Balance 490 -450 636.258 Weight 54 kg 63.7 kg Intake: Intake, IV Titration 250 160.258 Amount Heparin Sod,Pork in 0.45% 250 160.258 NaCl 25,000 unit In 0.45 % NaCl 1 250ml.bag @ 12 UNITS/KG/HR 7.729 mls/hr IV .Q24H [facility] Rx#: [id number] Oral 240 476 Output: Urine 450 Other: Voiding Method Diaper # Voids 1 1 # Bowel Movements 1 1 - Exam GENERAL EXAM: Patient is alert and oriented and doesn't appear to be in any acute distress HEENT: Normocephalic. Normal reaction of pupils, equal size, normal range of extraocular motion. No erythema or exudates in the throat. NECK: No masses, no nuchal rigidity. CHEST: No chest wall deformity. LUNGS: Equal air entry with no crackles or wheeze. HEART: S1 and S2 normal. Irregular rhythm ABDOMEN: No hepatosplenomegaly, normal bowel sounds, no guarding or rigidity. SKIN: No rashes CENTRAL NERVOUS SYSTEM: No focal deficits. EXTREMITIES: No cyanosis, clubbing or edema. - Labs CBC & Chem 7: 08/20/19 05:52 08/20/19 05:52 Labs: Abnormal Lab Results - Last 24 Hours (Table) 08/19/19 08/20/19 08/20/19 Range/Units 20:44 05:52 05:52 RBC 4.17 L (4.30-5.90) m/uL Hgb 12.4 L (13.0-17.5) gm/dL APTT (22.0-30.0) sec Sodium 132 L (137-145) mmol/L Glucose 62 L (74-99) mg/dL POC Glucose (mg/dL) 122 H (75-99) mg/dL 08/20/19 08/20/19 08/20/19 Range/Units 06:07 06:27 06:45 RBC (4.30-5.90) m/uL Hgb (13.0-17.5) gm/dL APTT (22.0-30.0) sec Sodium (137-145) mmol/L Glucose (74-99) mg/dL POC Glucose (mg/dL) 60 L 54 L 143 H (75-99) mg/dL 08/20/19 Range/Units 07:03 RBC (4.30-5.90) m/uL Hgb (13.0-17.5) gm/dL APTT 100.7 H* (22.0-30.0) sec Sodium (137-145) mmol/L Glucose (74-99) mg/dL POC Glucose (mg/dL) (75-99) mg/dL Assessment and Plan (1) Acute systolic CHF (congestive heart failure) Current Visit: Yes Status: Acute Code(s): I50.21 - ACUTE SYSTOLIC (CONGESTIVE) HEART FAILURE SNOMED Code(s): 581141828 (2) Atrial flutter Current Visit: Yes Status: Acute Code(s): I48.92 - UNSPECIFIED ATRIAL FLUTTER SNOMED Code(s): 4521358 (3) Rheumatoid arthritis Current Visit: Yes Status: Acute Code(s): M06.9 - RHEUMATOID ARTHRITIS, UNSPECIFIED SNOMED Code(s): 08903924 Plan: Patient is relatively stable. May consider to switching to by mouth anticoagulation. We'll keep him nothing by mouth for possible LOGAN cardioversion tomorrow
[2019-08-20 11:59] LABS: Glucose,Whole Blood 76 mg/dL (75-99)
--- NOTE | 2019-08-20 15:19 | XR ---
EXAMINATION TYPE: XR chest 2V DATE OF EXAM: 08/20/2019 COMPARISON: August 17, 2019 HISTORY: Short of breath TECHNIQUE: FINDINGS: There is poor inspiration. There is patchy airspace infiltrates and atelectasis in both low er lobes. There is some pulmonary vascular mild congestion. There is bilateral shoulder prosthesis. IMPRESSION: There is evidence of combined congestive heart failure and bilateral patchy pneumonia and atelectasis that is overall not significantly different than last exam.
[2019-08-20 16:55] LABS: Glucose,Whole Blood 74 mg/dL (75-99)
[2019-08-20 17:16] LABS: Glucose,Whole Blood 66 mg/dL (75-99)
[2019-08-20 17:34] LABS: Glucose,Whole Blood 76 mg/dL (75-99)
[2019-08-20 20:45] LABS: Glucose,Whole Blood 143 mg/dL (75-99)
[2019-08-20] MEDS: SODIUM CHLORIDE 0.9% 1,000 ML IV SCH ×2 (21:08)
[2019-08-20] MEDS: ATORVASTATIN 10 MG TAB PO SCH (21:10)
[2019-08-20] MEDS: MONTELUKAST 10 MG TAB PO SCH (21:10)
[2019-08-20] MEDS: HEPARIN SOD,PORK IN 0.45% NACL 25,000 UNIT in 0.45% NACL 1 250ML.BAG IV SCH (21:11)
--- NOTE | 2019-08-20 22:18 | CT ---
EXAMINATION TYPE: CT chest wo con DATE OF EXAM: 08/20/2019 COMPARISON: None HISTORY: pneumonia CT DLP: 351 mGycm Automated exposure control for dose reduction was used. Images were obtained from the thoracic inlet to the diaphragm with no contrast. There is moderate patchy airspace infiltrate and atelectasis in the mid and lower lung crane. Heart is enlarged. There is coronary artery calcification. Thoracic aorta is atheromatous. Ascending aorta measures 3.8 cm. There is irregular pleural thickening and calcification at the posterior lung bases. There is no mediastinal adenopathy. There are no hilar masses. There are calcified granulomata at th e pulmonary pam. The bony thorax is intact. There is spurring in the thoracic spine. Sternum is intact. IMPRESSION: Extensive pulmonary infiltrates and atelectasis. Bilateral pleural plaque and thickening at the lung bases. Old granulomatous disease. Small calcified gallstones are noted. Pulmonary infiltrates most likely inflammatory.
[2019-08-21] MEDS: DILTIAZEM 125 MG in SODIUM CHLORIDE 0.9% 100 ML IV SCH (03:19)
--- NOTE | 2019-08-21 04:00 | PN ---
PROGRESS NOTE DATE OF SERVICE: 08/20/2019 This 79-year-old gentleman admitted with new onset atrial flutter slated to have a LOGAN. The patient also had CHF acute exacerbation. Chest x-ray showed bilateral . Patient is being closely monitored. PAST MEDICAL HISTORY: Reviewed. REVIEW OF SYSTEMS: CARDIOVASCULAR SYSTEM: As mentioned earlier. RESPIRATORY SYSTEM: As mentioned earlier. GI: No nausea. : No dysuria. NERVOUS SYSTEM: No numbness or weakness. CURRENT MEDICATIONS: 1. Tylenol. 2. [place]. 3. DuoNeb. 4. Lipitor. 5. Symbicort. 6. Rocephin. 7. Cardizem. 8. Neurontin. 9. Glucotrol. 10.Heparin. 11.Glucophage. 12.Singulair. 13.Narcan. 14.Zofran. 15.Protonix. Doses are reviewed. PHYSICAL EXAMINATION: Patient is alert and oriented x3. Pulse 73, blood pressure 93/62, respirations 16, temperature normal, pulse ox 95% on 3 L. HEENT: Conjunctivae normal. NECK: No jugular venous distention. CARDIOVASCULAR: S1, S2 muffled. RESPIRATORY: Breath sounds diminished at the bases. A few scattered rhonchi and crackles. ABDOMEN: Soft, nontender. LEGS: No edema, no swelling. NERVOUS SYSTEM: No focal deficits. LABS: WBC 6.5, hemoglobin 12.4. APTT 47.8. Sodium 132. Glucose noted. ASSESSMENT: 1. New onset atrial flutter, status post Cardizem drip. 2. Congestive heart failure acute exacerbation, ejection fraction unknown. 3. Bilateral lung lesions, rule out pneumonia. 4. Change in mental status, acute metabolic encephalopathy. 5. Hyponatremia. 6. History of asthma. 7. Possible gram-negative pneumonia. 8. History of congestive heart failure. 9. History of chronic obstructive pulmonary disease. 10.Diabetes mellitus type 2, uncontrolled with hypoglycemia. 11.Hyperlipidemia. 12.Hypertension. 13.History of prostate disease. 14.History of rheumatoid arthritis. 15.History of vertigo. 16.History of psoriasis. 17.History of shingles. 18.History of sarcoidosis. 19.History of lung biopsy. 20.History of degenerative joint disease. 21.FULL CODE. RECOMMENDATIONS AND DISCUSSION: Recommend to continue current medications, continues symptomatic treatment. Otherwise I would also recommend a CT scan of the chest to complete the workup. Guarded prognosis because of multiple complex medical issues. Further recommendations to follow. Repeat labs will be ordered. MMODL / IJN: [id number] / ANDERSON
[2019-08-21 05:54] LABS: Glucose,Whole Blood 99 mg/dL (75-99)
[2019-08-21] MEDS: GABAPENTIN 300 MG CAP PO SCH ×2 (06:03→14:31)
[2019-08-21] MEDS: PANTOPRAZOLE 40 MG TABLET PO SCH (06:04)
[2019-08-21] MEDS: LEVOTHYROXINE 25 MCG TAB PO SCH (06:05)
[2019-08-21 07:05] LABS: Basophils % (A) 1 %; Eosinophils # (A) 0.2 k/uL (0-0.7); Eosinophils % (A) 3 %; HCT 39.5 % (39.0-53.0); HGB 12.5 gm/dL (13.0-17.5); Hypochromasia Moderate; Lymphocytes # (A) 1.9 k/uL (1.0-4.8); Lymphocytes % (A) 24 %; MCH 29.6 pg (25.0-35.0); MCHC 31.6 g/dL (31.0-37.0); MCV 93.7 fL (80.0-100.0); Mean Platelet Volume 8.3; Monocytes # (A) 0.5 k/uL (0-1.0); Monocytes % (A) 6 %; Neutrophils % (A) 64 %; Platelet Count 336 k/uL (150-450); RBC 4.21 m/uL (4.30-5.90); WBC 7.9 k/uL (3.8-10.6)
[2019-08-21 07:21] LABS: African American GFR (CKD) >90 (>60 ml/min/1.73 sqM); Anion Gap 8 mmol/L; Blood Urea Nitrogen 23 mg/dL (9-20); Carbon Dioxide 23 mmol/L (22-30); Chloride 98 mmol/L (98-107); Glucose 105 mg/dL (74-99); Non-African American GFR(CKD) 88 (>60 ml/min/1.73 sqM); Potassium 4.5 mmol/L (3.5-5.1); Sodium 129 mmol/L (137-145)
[2019-08-21] MEDS: METOPROLOL TARTRATE 50 MG TAB PO SCH (07:46)
[2019-08-21] MEDS: FUROSEMIDE 10 MG/ML 2 ML VIAL IV SCH (07:46)
[2019-08-21] MEDS: SYMBICORT 160-4.5 MCG INHALER INHALATION SCH (08:14)
[2019-08-21] MEDS: IPRATROPIUM-ALBUTEROL 3 ML NEB INHALATION SCH ×2 (08:15→11:33)
[2019-08-21] MEDS: metFORMIN 500 MG TAB PO SCH (08:45)
[2019-08-21] MEDS: glipiZIDE 5 MG TAB PO SCH (08:45)
[2019-08-21] MEDS ORDERED: LACTATED RINGERS 1,000 ML IV ONE (10:30)
[2019-08-21 11:00] VITALS: TEMP 97.8
[2019-08-21] MEDS ORDERED: BENZOCAINE SPRAY 1 CAN TOPICAL ONE ×2 (11:06→11:12)
[2019-08-21] MEDS ORDERED: LIDOCAINE 1% INJ 10MG/ML (20 ML MDV) ONE (11:11)
[2019-08-21] MEDS ORDERED: PROPOFOL 10 MG/ML 20 ML VIAL IV ONE (11:11)
[2019-08-21] MEDS ORDERED: ATROPINE SULFATE 0.1 MG/ML 10ML SYRINGE ONE (11:18)
[2019-08-21] MEDS ORDERED: SODIUM BICARB 8.4% 50 ML SYR (1 MEQ/ML) ONE (11:18)
[2019-08-21] MEDS ORDERED: EPINEPHrine 10 ML SYRINGE (0.1 MG/ML) ONE (11:18)
[2019-08-21] MEDS ORDERED: DEXTROSE 50% SYRINGE 50 ML IVP ONE (11:18)
--- NOTE | 2019-08-21 11:57 | P.TEE ---
Indications for Procedure(s): Atrial flutter Date of Procedure: 08/21/19 Preoperative Diagnosis: Atrial flutter Postoperative Diagnosis: Atrial flutter Procedure(s) Performed: LOGAN Description of Procedure(s): This 79-year-old gentleman was admitted to the hospital with the newly detected atrial flutter associated with hypotension and shortness of breath. Patient is advised to have cardioversion. Patient was brought to the recovery room. Patient was prepped and draped in the usual fashion. Patient was given IV sedation by department of anesthesia. A lubricated Omni probe was introduced in the oropharynx and was advanced into the esophagus. Multiple views were obtained. Patient became bradycardic and hypotensive at the end of the procedure. He came asystolic requiring resuscitation. Patient received chest compressions and IV Epinephrine.After 5-10 minutes of resuscitation, patient is a pulse and blood pressure. Patient is being transferred to intensive care unit. No cardioversion was performed. Findings: The aortic valve is slightly restricted with a valve area about 1.5 cm. No regurgitation noted. Mitral valve showed mild to moderate regurgitation. No clot in the left atrial appendage. No PFO. Saline contrast bubble injection was also performed. LV function is severely impaired. There is biatrial enlargement. Right ventricle is dilated. Final impression: No clot in the left atrial appendage. Left ankle function is severely impaired. Could not proceed with cardioversion because of cardiac arrest and resuscitation. Family is notified
[2019-08-21 11:58] LABS: Glucose,Whole Blood 127 mg/dL (75-99)
[2019-08-21 12:21] LABS: Basophils # (A) 0.1 k/uL (0-0.2); Basophils % (A) 1 %; Eosinophils # (A) 0.2 k/uL (0-0.7); Eosinophils % (A) 2 %; HCT 39.5 % (39.0-53.0); HGB 12.7 gm/dL (13.0-17.5); Hypochromasia Moderate; Lymphocytes # (A) 4.4 k/uL (1.0-4.8); Lymphocytes % (A) 37 %; MCHC 32.1 g/dL (31.0-37.0); MCV 93.5 fL (80.0-100.0); Mean Platelet Volume 8.8; Monocytes # (A) 0.7 k/uL (0-1.0); Monocytes % (A) 6 %; Neutrophils # (A) 6.2 k/uL (1.3-7.7); Neutrophils % (A) 53 %; Platelet Count 201 k/uL (150-450); RBC 4.23 m/uL (4.30-5.90); RDW 13.9 % (11.5-15.5); WBC 11.7 k/uL (3.8-10.6)
[2019-08-21] MEDS ORDERED: CISATRACURIUM 2 MG/ML 5 ML VIAL IV ONE ×2 (12:41→12:43)
[2019-08-21] MEDS ORDERED: propofoL 100 ML IV ONE (12:41)
[2019-08-21 12:46] LABS: African American GFR (CKD) >90 (>60 ml/min/1.73 sqM); Anion Gap 9 mmol/L; Blood Urea Nitrogen 22 mg/dL (9-20); Calcium 8.5 mg/dL (8.4-10.2); Carbon Dioxide 21 mmol/L (22-30); Chloride 99 mmol/L (98-107); Glucose 171 mg/dL (74-99); Non-African American GFR(CKD) 88 (>60 ml/min/1.73 sqM); Potassium 4.1 mmol/L (3.5-5.1); Sodium 129 mmol/L (137-145)
[2019-08-21 12:58] LABS: ABG Base Excess -12.8 mmol/L; ABG HCO3 17 mmol/L (21-25); ABG Oxygen Saturation 90.6 % (94-97); ABG PCO2 54 mmHg (35-45); ABG PO2 85 mmHg (83-108); ABG TCO2 19 mmol/L (19-24)
[2019-08-21 13:00] LABS: Allen Test Performed? no
[2019-08-21] MEDS ORDERED: NOREPINEPHRINE 32 MG in SODIUM CHLORIDE 0.9% 218 ML IV SCH (13:15)
[2019-08-21] MEDS: EPINEPHrine 4 MG in DEXTROSE 5% IN WATER 250 ML IV SCH ×6 (13:16→15:31)
[2019-08-21] MEDS: SODIUM CHLORIDE 0.9% 1,000 ML IV SCH (13:20)
--- NOTE | 2019-08-21 13:31 | XR ---
EXAMINATION TYPE: XR chest 1V portable DATE OF EXAM: 08/21/2019 COMPARISON: Prior chest x-ray 08/20/2019 HISTORY: Congestive heart failure, post code TECHNIQUE: Single frontal view of the chest is obtained. FINDINGS: Endotracheal tube and NG tube have been placed in the interval. Left subclavian central ve nous catheter is noted with the distal tip over the right atrium. No evident pneumothorax or pleural effusion. Patient is rotated. Heart size is likely stable. Perihilar vascular indistinctness is prese nt, there is prominence of interstitium. IMPRESSION: Interval intubation. Expiratory rotated exam. There may be progression of airspace disea se.
[2019-08-21 14:40] LABS: ALT 27 U/L (4-49); AST 74 U/L (17-59); African American GFR (CKD) >90 (>60 ml/min/1.73 sqM); Albumin 1.7 g/dL (3.5-5.0); Alkaline Phosphatase 77 U/L (38-126); Anion Gap 17 mmol/L; Blood Urea Nitrogen 18 mg/dL (9-20); Carbon Dioxide 12 mmol/L (22-30); Chloride 101 mmol/L (98-107); Glucose 340 mg/dL (74-99); Magnesium 1.9 mg/dL (1.6-2.3); Non-African American GFR(CKD) 87 (>60 ml/min/1.73 sqM); Potassium 5.1 mmol/L (3.5-5.1); Sodium 130 mmol/L (137-145); Total Bilirubin 0.1 mg/dL (0.2-1.3); Total Protein 3.3 g/dL (6.3-8.2)
[2019-08-21 14:45] LABS: HCT 35.4 % (39.0-53.0); HGB 10.2 gm/dL (13.0-17.5); Hypochromasia Marked; MCH 28.7 pg (25.0-35.0); MCHC 28.9 g/dL (31.0-37.0); Mean Platelet Volume 8.1; Platelet Count 193 k/uL (150-450); RBC 3.56 m/uL (4.30-5.90)
[2019-08-21 14:48] LABS: MCV 99.4 fL (80.0-100.0)
[2019-08-21 14:57] LABS: ABG Base Excess -20.1 mmol/L; ABG HCO3 11 mmol/L (21-25); ABG Oxygen Saturation 82.1 % (94-97); ABG PCO2 46 mmHg (35-45); ABG PO2 71 mmHg (83-108); ABG TCO2 13 mmol/L (19-24)
[2019-08-21 15:03] LABS: Allen Test Performed? no
[2019-08-21] MEDS ORDERED: SODIUM BICARB 8.4% 50 ML SYR (1 MEQ/ML) IV STA (15:05)
[2019-08-21] MEDS ORDERED: DEXTROSE 5% IN WATER 1,000 ML with SODIUM BICARB (1 MEQ/ML) 150 ML IV SCH (15:15)
[2019-08-21] MEDS ORDERED: PIPERACILLIN-TAZOBACTAM 3.375 GM in SODIUM CHLORIDE 0.9% 100 ML IVPB SCH (16:00)
[2019-08-21 17:13] VITALS: BP 83/62; PULSE 0; RESP 0
--- NOTE | 2019-08-21 17:25 | PN ---
PROGRESS NOTE DATE OF SERVICE: 08/21/2019 This is an 79-year-old gentleman admitted with atrial flutter, also had CHF. The patient underwent LOGAN today, no clot in the left atrial appendage is noted. The patient underwent a cardiac arrest in the cathode maker and the patient had multiple cardiac arrest and subsequently CPR was done and the patient subsequently mechanically intubated and admitted to ICU at this time. The patient unable to give a coherent history and the patient also had developed asystole, prolonged pauses developing resuscitation. Patient initially had bradycardia and given atropine. The patient underwent chest compressions and IV heparin. The pulse and blood pressure returned. The patient is in ICU at this time. Cardioversion could not be done because of the above mentioned reason. The patient will be closely in the ICU. Patient on mechanical vent settings are noted. PAST MEDICAL HISTORY: Reviewed. REVIEW OF SYSTEMS: Could not be taken. CURRENT MEDICATIONS: Revived and include: Tylenol p.r.n., DuoNeb q.i.d. and p.r.n., Lipitor, Rocephin 1 g daily, epinephrine, Neurontin, heparin, Synthroid, singular, Narcan, Zofran, Protonix, propofol. PHYSICAL EXAM: Patient is mechanically sedated. Pulse is 70, blood pressure ntd, respiration 18, temperature 97.2, pulse ox is 100% on mechanical ventilation. HEENT: Conjunctivae normal. Oral mucosa moist. NECK: No jugular venous distention. No lymph node enlargement. CARDIOVASCULAR: S1, S2. RESPIRATION: Breath sounds diminished at the bases, a few scattered rhonchi. ABDOMEN: Soft. NERVOUS SYSTEM: The patient is mechanically intubated and sedated. LABS: WBC 7.2, hemoglobin 12.7, sodium is 130 and AST 74, albumin is 1.7. ASSESSMENT: 1. Atrial flutter with fast ventricular rate, status post LOGAN. 2. Acute cardiorespiratory arrest and bradycardia, possibly secondary to coronary artery disease. 3. Acute hypoxic respiratory failure, on mechanical ventilation. 4. Congestive heart failure acute exacerbation with acute on chronic systolic dysfunction with severe impairment of the LV function. 5. Bilateral pleural plaques and extensive bilateral pneumonia, possibly gram- negative. 6. Change in mental status and acute metabolic encephalopathy, multifactorial. 7. Hyponatremia. 8. History of asthma. 9. History of congestive heart failure with chronic systolic dysfunction. 10.History of chronic obstructive pulmonary disease. 11.Diabetes mellitus type 2, uncontrolled with hypoglycemia. 12.Hyperlipidemia. 13.Hypertension. 14.History of prostate disease. 15.History of rheumatoid arthritis. 16.History of vertigo. 17.History of psoriasis. 18.History of shingles. 19.History of sarcoidosis. 20.History of lung biopsy. 21.History of degenerative joint disease. 22.NO CODE, NO CPR, NO VENT. RECOMMENDATION: In this 79-year-old gentleman who presented with multiple complex medical issues, will monitor the patient closely, continue with the current management and treatment. Otherwise at this time, the patient on mechanical ventilation. Closely monitor. The patient also received no epinephrine. The most recent chest x-ray showed bilateral lesions, some combination, possibly combination of CHF and COPD. Will continue to monitor. LOGAN findings are noted. Cardioversion could not be done. Prognosis guarded because of multiple complex medical issues. Further recommendations to follow. MMWESLEYL / MARKUSN: [id number] / MTDSerenity
--- NOTE | 2019-08-21 18:32 | P.PN ---
Subjective Progress Note Date: 08/21/19 79-year-old male who was scheduled to have a LOGAN with cardioversion in the postanesthesia recovery unit. Patient was seen preprocedure was alert and oriented 3 with no changes in mental status since his hospitalization. He was admitted to the hospital for a trip fibrillation and shortness of breath. He was attempted on chemical cardioversion with amiodarone and Cardizem however had persistent atrial flutter. Plan today was to evaluate for clot and left atrial appendage and to cardiovert if none was identified. Procedure was started with 40 mg of propofol (per nurse formal service waiter) and patient placed in left lateral position. I was not present for the duration of the study however after discus chase with the nurse formal service waiter providing care for the case the patient was hemodynamically stable, ventilating, cooperative for the procedure. The study took a total of 3 minutes, the probe was removed and patient was attempted to be placed in the supine position for the cardioversion is a patient was still in atrial flutter. During that movement to the supine position patient began to develop a bradycardia arrhythmia, and a and an anesthesia stat was called overhead. When I entered the postanesthesia recovery unit, chest compressions were being performed by another provider, the patient was being mask ventilated. He was informed that patient was given a gram of atropine because of the bradycardia arrhythmia and then entered asystole. Standard ACLS protocol was in process, I went to secure the airway with an 8.0 mm endotracheal tube under direct laryngoscopy. At that point continuous chest compressions were being given ventilation every 6 seconds. Patient remained pulseless for 7 minutes and after 3 rounds of ACLS with 3 mg of epinephrine give her in total. Patient was then found to have strong femoral and carotid pulses. Transthoracic echocardiography showed severely depressed left ventricular function. I contacted the intensive care physician and inform them of the events. A bed was assigned the patient however prior to transferring patient again went into a bradycardia arrhythmia, ACLS was started again after no pulse was obtained. pulseless electrical activity was identified and CPR was continued again for 2 cycles. Patient wasn't started on a vasopressor once return of spontaneous circulation was achieved. Patient's blood sugar was checked at 127, he was not hypothermic, hypotensive and no overt lab abnormalities were attributed to the cause of the cardiac arrest. At no point was the patient defibrillated as she was not in a shockable rhythm. Patient was then transferred to ICU in critical condition. Objective - Vital Signs Vital signs: Vital Signs Temp 97.8 F 08/21/19 10:51 Pulse 0 L 08/21/19 17:00 Resp 0 L 08/21/19 17:00 BP 83/62 08/21/19 13:50 Pulse Ox 94 L 08/21/19 10:51 Intake & Output 08/20/19 08/21/19 08/21/19 18:59 06:59 18:59 Intake Total 876.258 615.196 3711.537 Output Total 800 910 175 Balance 76.258 -943.752 6718.537 Weight 64.7 kg 64.7 kg Intake: Intake, IV Titration 160.258 443.539 5708.537 Amount Dextrose 5% in Water 1, 125 000 ml @ 125 mls/hr IV . Q9H12M WILDA with Sodium Bicarb (1 Meq/ml) 150 ml Rx#:[id number] EPINEPHrine 4 mg In 506.682 Dextrose 5% in Water 250 ml @ 0 MCG/KG/MIN IV .Q0M WILDA Rx#:[id number] Heparin Sod,Pork in 0.45% 160.258 58.305 55.013 NaCl 25,000 unit In 0.45 % NaCl 1 250ml.bag @ 12 UNITS/KG/HR 7.729 mls/hr IV .Q24H WILDA Rx#: [id number] Norepinephrine 32 mg In 34.842 Sodium Chloride 0.9% 218 ml @ 0.05 MCG/KG/MIN 1. 516 mls/hr IV .Q24H WILDA Rx#:[id number] Sodium Chloride 0.9% 1, 160 1000 000 ml @ 20 mls/hr IV . Q24H WILDA Rx#:[id number] Oral 716 Output: Urine 800 910 175 Other: Voiding Method Diaper Urinal Indwelling Catheter Diaper # Voids 1 ABP, PAP, CO, CI - Last Documented Arterial Blood Pressure - Labs CBC & Chem 7: 08/21/19 13:57 08/21/19 13:57 Labs: Abnormal Lab Results - Last 24 Hours (Table) 08/20/19 08/21/19 08/21/19 Range/Units 20:44 06:33 06:33 WBC (3.8-10.6) k/uL RBC 4.21 L (4.30-5.90) m/uL Hgb 12.5 L (13.0-17.5) gm/dL Hct (39.0-53.0) % MCHC (31.0-37.0) g/dL APTT (22.0-30.0) sec ABG pH (7.35-7.45) ABG pCO2 (35-45) mmHg ABG pO2 (83-108) mmHg ABG HCO3 (21-25) mmol/L ABG Total CO2 (19-24) mmol/L ABG O2 Saturation (94-97) % Sodium 129 L (137-145) mmol/L Carbon Dioxide (22-30) mmol/L BUN 23 H (9-20) mg/dL Glucose 105 H (74-99) mg/dL POC Glucose (mg/dL) 143 H (75-99) mg/dL Calcium (8.4-10.2) mg/dL Total Bilirubin (0.2-1.3) mg/dL AST (17-59) U/L Total Protein (6.3-8.2) g/dL Albumin (3.5-5.0) g/dL 08/21/19 08/21/19 08/21/19 Range/Units 06:33 11:56 12:07 WBC 11.7 H (3.8-10.6) k/uL RBC 4.23 L (4.30-5.90) m/uL Hgb 12.7 L (13.0-17.5) gm/dL Hct (39.0-53.0) % MCHC (31.0-37.0) g/dL APTT 34.8 H (22.0-30.0) sec ABG pH (7.35-7.45) ABG pCO2 (35-45) mmHg ABG pO2 (83-108) mmHg ABG HCO3 (21-25) mmol/L ABG Total CO2 (19-24) mmol/L ABG O2 Saturation (94-97) % Sodium (137-145) mmol/L Carbon Dioxide (22-30) mmol/L BUN (9-20) mg/dL Glucose (74-99) mg/dL POC Glucose (mg/dL) 127 H (75-99) mg/dL Calcium (8.4-10.2) mg/dL Total Bilirubin (0.2-1.3) mg/dL AST (17-59) U/L Total Protein (6.3-8.2) g/dL Albumin (3.5-5.0) g/dL 08/21/19 08/21/19 08/21/19 Range/Units 12:07 12:56 13:57 WBC (3.8-10.6) k/uL RBC 3.56 L (4.30-5.90) m/uL Hgb 10.2 L (13.0-17.5) gm/dL Hct 35.4 L (39.0-53.0) % MCHC 28.9 L (31.0-37.0) g/dL APTT (22.0-30.0) sec ABG pH 7.10 L* (7.35-7.45) ABG pCO2 54 H (35-45) mmHg ABG pO2 (83-108) mmHg ABG HCO3 17 L (21-25) mmol/L ABG Total CO2 (19-24) mmol/L ABG O2 Saturation 90.6 L (94-97) % Sodium 129 L (137-145) mmol/L Carbon Dioxide 21 L (22-30) mmol/L BUN 22 H (9-20) mg/dL Glucose 171 H (74-99) mg/dL POC Glucose (mg/dL) (75-99) mg/dL Calcium (8.4-10.2) mg/dL Total Bilirubin (0.2-1.3) mg/dL AST (17-59) U/L Total Protein (6.3-8.2) g/dL Albumin (3.5-5.0) g/dL 08/21/19 08/21/19 08/21/19 Range/Units 13:57 14:52 14:55 WBC (3.8-10.6) k/uL RBC (4.30-5.90) m/uL Hgb (13.0-17.5) gm/dL Hct (39.0-53.0) % MCHC (31.0-37.0) g/dL APTT >200.0 H* (22.0-30.0) sec ABG pH 7.00 L* (7.35-7.45) ABG pCO2 46 H (35-45) mmHg ABG pO2 71 L (83-108) mmHg ABG HCO3 11 L (21-25) mmol/L ABG Total CO2 13 L (19-24) mmol/L ABG O2 Saturation 82.1 L (94-97) % Sodium 130 L (137-145) mmol/L Carbon Dioxide 12 L (22-30) mmol/L BUN (9-20) mg/dL Glucose 340 H (74-99) mg/dL POC Glucose (mg/dL) (75-99) mg/dL Calcium 7.0 L (8.4-10.2) mg/dL Total Bilirubin 0.1 L (0.2-1.3) mg/dL AST 74 H (17-59) U/L Total Protein 3.3 L (6.3-8.2) g/dL Albumin 1.7 L (3.5-5.0) g/dL
--- NOTE | 2019-08-21 20:56 | CONS ---
CONSULTATION PULMONARY/CRITICAL CARE CONSULTATION: DATE OF SERVICE: 08/21/2019 REASON FOR CONSULTATION: Cardiopulmonary arrest, ICU management and ventilator management. This is an 79-year-old gentleman with a history of severe COPD. He apparently also suffers from heart failure, hypertension and other medical problems. He apparently presented to the emergency room on August 16 with complaints of increasing shortness of breath. The patient was apparently receiving some sort of infusion in an outside hospital when he became suddenly short of breath. He apparently denied any chest pain. He does have a history of COPD and does use oxygen . Most of his doctors are up in the [facility] area. He does see a pipe stem sawyer in [place] and also a trim sawyer in [place]. Anyway, he apparently states that the shortness of breath began acutely. He does have chronic shortness of breath secondary to his underlying COPD. He had no fever or chills. There was no coughing. There was no phlegm production. Anyway, the patient was admitted to the hospital by the ER physician with a diagnosis of atrial flutter. The patient apparently was taken down to the surgical area today for a transesophageal echocardiogram and apparently cardioversion. He got through the transesophageal echocardiogram, at which time the patient started having bradycardia. The patient ended up having a cardiopulmonary arrest and was resuscitated for about 6 minutes. He received epinephrine, did not require any shocks. He was intubated at that time and transferred to the ICU. On transfer to the ICU he was apparently having cardiopulmonary arrest and the patient was moved into room 261. There he was resuscitated for another 10 or 12 minutes or so. Anyway, I did have a chance to speak to his . She understands the severity of the situation. I was able to put a left subclavian triple-lumen catheter in and a right femoral arterial line. The patient tolerated both procedures well. Current vent settings include the assist-control mode rate of 26, tidal volume is 400, FiO2 100%, PEEP of 5. Blood gases will be noted. The patient was on IV fluids and high-dose epinephrine. CURRENT MEDICATIONS: Current home medications are reviewed. They include Orencia, albuterol inhaler, Proscar, Advair, Neurontin, Motrin, Singulair, Catapres, Glucophage, Mevacor, Norvasc, Amaryl, Valtrex and Synthroid. ALLERGIES: ALLERGIES include INFLIXIMAB. MEDICAL HISTORY: Medical history includes rheumatoid arthritis, sarcoidosis, hyperlipidemia, diabetes, hypertension, COPD, heart failure, asthma, vertigo, psoriasis and shingles. SURGICAL HISTORY: Surgical history includes appendectomy. He has also had a lung biopsy, a testicle removed, and right and left shoulder arthroscopy. SOCIAL HISTORY: Positive for previous heavy tobacco use. Does not smoke currently. Apparently no significant alcohol use or illicit drug use. FAMILY HISTORY: Positive for mother with congestive heart failure. REVIEW OF SYSTEMS: Review of systems cannot be obtained. The patient is currently sedated, paralyzed, intubated and on mechanical ventilation. PHYSICAL EXAMINATION: VITAL SIGNS: Current vital signs are reviewed. Temperature 97.8, heart rate 96 and irregular, respiratory rate 26. Blood pressure is about 85/66. Saturations are in the mid 90s. GENERAL APPEARANCE: Appears in no acute distress. Currently sedated. HEENT: Examination is grossly unremarkable. He has an orally placed endotracheal tube and NG tube. NECK: Supple. There is a left subclavian triple-lumen catheter. CARDIOVASCULAR: Examination reveals a regular rhythm and rate. Heart rate about 105. S1, S2 normal. Heart sounds are distant. No distinct murmur. LUNGS: Lungs reveal diffuse coarse rhonchi. Breath sounds equal. ABDOMEN: Soft. No bowel sounds. EXTREMITIES: Intact. No edema. SKIN: Without rash. NEUROLOGIC: Neurologic examination cannot be adequately assessed. A chest x-ray was done. It shows a properly placed subclavian catheter. Endotracheal tube is above the tracheal cuong. There are diffuse bilateral infiltrates. A chest CT was done yesterday. It shows extensive pulmonary infiltrates and atelectasis; bilateral pleural plaques and thickening of the lung bases. There is old granulomatous disease. LABS: Reviewed. White count 11.7, hemoglobin 12.7, hematocrit 39.5, platelet count 301,000. Blood gases on AC 20 375, 100% 5 of PEEP show a PO2 of 85, pCO2 of 54, and a pH of 7.10. Sodium 129, potassium 4.1, chloride 99, CO2 21. Anion gap is 9. BUN and creatinine were 22 and 0.72. Current medications are reviewed. He is on Tylenol, epinephrine drip, Rocephin, IV heparin, levothyroxine, updrafts and Diprivan for sedation. ASSESSMENT: 1. Status post cardiopulmonary arrest shortly after a transesophageal echocardiogram, with a total of about 16 to 20 minutes of resuscitation and eventual return of spontaneous circulation. 2. Atrial flutter/fibrillation, with anticipated transesophageal echocardiogram and cardioversion today. 3. History of severe oxygen-dependent chronic obstructive pulmonary disease from previous tobacco use. 4. History of asthma. 5. History of congestive heart failure. 6. History of diabetes mellitus. 7. Hyperlipidemia. 8. History of hypertension. 9. History of rheumatoid arthritis. 10.History of vertigo. 11.History of psoriasis. 12.History of shingles. 13.History of inactive sarcoidosis. PLAN: Currently the patient has a central line and an arterial line. He was intubated by Anesthesia. He is currently on a high dose of epinephrine for blood pressure support. Blood gases recently done. Vent changes have been made. Prognosis is very poor. I did speak to the patient's . Propofol for sedation. The patient did receive one dose of Nimbex prior to the procedures. The procedures went well. Chest x-ray shows a well placed subclavian catheter and an endotracheal tube which is above the tracheal cuong. Will continue to follow. MMODL / IJN: [id number] /
--- NOTE | 2019-08-21 22:44 | PCN ---
PROCEDURE NOTE PROCEDURE: Right femoral arterial line placement. Indications: Hemodynamic monitoring. Need for frequent blood draws and blood gas monitoring. OPERATORS: 1. Jacky Marinelli M.D. 2. Brittanie Padilla. A time-out was completed verifying correct patient, procedure, site, positioning, and implant(s) or special equipment if applicable. Fabrice's test was performed to ensure adequate perfusion. The patient's right groin was prepped and draped in sterile fashion. 1% Lidocaine was used to anesthetize the area. An 18G Arrow arterial line was introduced into the femoral artery. The catheter was threaded over the guide wire and the needle was removed with appropriate pulsatile blood return. Blood loss was minimal. The catheter was then sutured in place to the skin and a sterile dressing applied. Perfusion to the extremity distal to the point of catheter insertion was checked and found to be adequate. The patient tolerated the procedure well and there were no complications. PROCEDURE: Left subclavian triple-lumen catheter placement. Indication: Hemodynamic monitoring/Intravenous access. Need for administration of fluids and pressors. OPERATORS: 1. Jacky Marinelli M.D. 2. Brittanie Padilla. A time-out was completed verifying correct patient, procedure, site, positioning, and implant(s) or special equipment if applicable. The patient was placed in a dependent position appropriate for triple-lumen catheter placement based on the vein to be cannulated. The patient's left neck was prepped and draped in sterile fashion. 1% Lidocaine was used to anesthetize the surrounding skin area. A triple lumen 9F Cordis catheter was introduced into the subclavian vein using Seldinger technique. The catheter was threaded smoothly over the guide wire and appropriate blood return was obtained. Each lumen of the catheter was evacuated of air and flushed with sterile saline. The catheter was then sutured in place to the skin and a sterile dressing applied. Perfusion to the extremity distal to the point of catheter insertion was checked and found to be adequate. There was no immediate complication. The catheter was sutured in place. The tip of the catheter were seen in the superior vena cava and right atrial junction. Sterile dressing was applied by the nurse. There was no immediate complication. A chest x-ray was ordered. MMODL / IJN: [id number] /
--- NOTE | 2019-08-23 15:59 | ECHOF ---
Referral Reason:A. fib MEASUREMENTS -------- HEIGHT: 172.7 cm WEIGHT: 62.6 kg BP: 98/67 RVIDd: 4.2 cm (< 3.3) IVSd: 1.2 cm (0.6 - 1.1) LVIDd: 4.0 cm (3.9 - 5.3) LVPWd: 1.2 cm (0.6 - 1.1) IVSs: 1.6 cm LVIDs: 2.5 cm LVPWs: 1.5 cm LA Diam: 3.3 cm (2.7 - 3.8) Ao Diam: 3.4 cm (2.0 - 3.7) AV Cusp: 1.6 cm (1.5 - 2.6) MV EXCURSION: 12.690 mm (> 18.000) MV EF SLOPE: 61 mm/s (70 - 150) EPSS: 1.4 cm RAP: 5.00 mmHg RVSP: 47.49 mmHg FINDINGS -------- This was a technically adequate study. The left ventricular size is normal. There is borderline concentric left ventricular hypertrophy. Overall left ventricular systolic function is mild-moderately impaired with, an EF between 40 - 45 % . The right ventricle is severely enlarged. The left atrial size is normal. The right atrium is mildly enlarged. Interatrial and interventricular septum intact. There is mild aortic valve sclerosis. The mitral valve leaflets are mildly thickened. Mild mitral annular calcification present. Mild m itral regurgitation is present. Mild tricuspid regurgitation present. There is moderate pulmonary hypertension. The right ventric ular systolic pressure, as measured by Doppler, is 47.49mmHg. Trace/mild (physiologic) pulmonic regurgitation. The aortic root size is normal. IVC Not well visulized. There is no pericardial effusion. CONCLUSIONS -------- 1. This was a technically adequate study. 2. The left ventricular size is normal. 3. There is borderline concentric left ventricular hypertrophy. 4. Overall left ventricular systolic function is mild-moderately impaired with, an EF between 40 - 45 %. 5. The right ventricle is severely enlarged. 6. The left atrial size is normal. 7. The right atrium is mildly enlarged. 8. Interatrial and interventricular septum intact. 9. There is mild aortic valve sclerosis. 10. The mitral valve leaflets are mildly thickened. 11. Mild mitral annular calcification present. 12. Mild mitral regurgitation is present. 13. Mild tricuspid regurgitation present. 14. There is moderate pulmonary hypertension. 15. The right ventricular systolic pressure, as measured by Doppler, is 47.49mmHg. 16. Trace/mild (physiologic) pulmonic regurgitation. 17. The aortic root size is normal. 18. IVC Not well visulized. 19. There is no pericardial effusion. [employer] ARCHITECT: Niecy Ashton RDCS
--- NOTE | 2019-08-24 11:34 | CDI ---
Documentation Clarification Form Date: 08/24/19 From: Edna Polanco Phone: If you have a question about this query, please contact Leelee Rodrigues, Graphic Designer at [phone] between 8am and 5pm. Admit Date: 08/17/19 Discharge Date: 08/21/19 Patient Name: CHRISTINA OLSON Visit Number: [id number] ATTENTION: The Clinical Documentation Specialists (CDI) and [facility] Coding Staff appreciate your assistance in clarifying documentation. Please respond to the clarification below the line at the bottom and electronically sign. The CDI & [facility] Coding staff will review the response and follow-up if needed. Please note: Queries are made part of the Legal Health Record. If you have any questions, please contact the author of this message via ITS. Dear Dr. Iris Sr, New onset of Atrial fibrillation, flutter & supraventricular tachycardia are documented in the H&P. 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 EKG/telemetry: Ventricular rate 144, SVT, right bundle, QRS 112, QTc 575. No [place] prolongation, no QTC prolongation, no ST or T-wave changes noted Treatment: chemical cardioversion, IV Cardizem and anticoagulation, LOGAN Consults: He was treated with IV adenosine and subsequently started on IV Cardizem.Patient's heart rate is controlled at this time. He chest x-ray showed evidence of pleural effusion and right pulmonary edema.Patient had elevated BNP level. In your professional opinion, in order to capture the severity of condition; can you please clarify the type of Atrial Flutter if known? Typical/Type I Atypical/Type II Other, please specify Unable to determine Unable to determine MTDD
--- NOTE | 2019-08-24 11:40 | CDI ---
Documentation Clarification Form Date: 08/24/19 From: Edna Polanco Phone: If you have a question about this query, please contact Leelee Rodrigues, Labeling Associate at [phone] between 8am and 5pm. Admit Date: 08/17/19 Discharge Date: 08/21/19 Patient Name: CHRISTINA OLSON Visit Number: [id number] ATTENTION: The Clinical Documentation Specialists (CDI) and [facility] Coding Staff appreciate your assistance in clarifying documentation. Please respond to the clarification below the line at the bottom and electronically sign. The CDI & [facility] Coding staff will review the response and follow-up if needed. Please note: Queries are made part of the Legal Health Record. If you have any questions, please contact the author of this message via ITS. Dear Dr. Iris Sr, New onset of Atrial fibrillation, flutter & supraventricular tachycardia are documented in the H&P. 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 EKG/telemetry: Ventricular rate 144, SVT, right bundle, QRS 112, QTc 575. No [place] prolongation, no QTC prolongation, no ST or T-wave changes noted Treatment: chemical cardioversion, IV Cardizem and anticoagulation, LOGAN Consults: He was treated with IV adenosine and subsequently started on IV Cardizem. Patient's heart rate is controlled at this time. He chest x-ray showed evidence of pleural effusion and right pulmonary edema. Patient had elevated BNP level. In your professional opinion, can you please clarify the type of Atrial Fibrillation, if known? Chronic Permanent Paroxysmal Persistent, longstanding Persistent, other Persistent, permanent Other, please specify Unable to determine Paroxysmal MTDD
--- NOTE | 2019-08-30 22:01 | DS ---
DISCHARGE SUMMARY PRELIMINARY CAUSE OF : Coronary atherosclerosis. OTHER DIAGNOSES: 1. Atrial flutter with a fast ventricular rate, status post transesophageal echocardiogram. 2. Acute cardiorespiratory arrest and bradycardia, possibly secondary to coronary artery disease. 3. Acute hypoxic respiratory failure, on mechanical ventilation. 4. Congestive heart failure, acute exacerbation, with acute on chronic systolic dysfunction, severe impairment of the left ventricular function and chronic systolic dysfunction with congestive heart failure. 5. Bilateral pleural plaques and extensive bilateral pneumonia, possibly Gram- negative. 6. Change in mental status, acute metabolic encephalopathy, multifactorial. 7. Hyponatremia. 8. History of asthma. 9. History of congestive heart failure with chronic diastolic dysfunction. 10.History of chronic obstructive pulmonary disease. 11.Diabetes mellitus, type 2, uncontrolled with hypoglycemia. 12.Hyperlipidemia. 13.Hypertension. 14.History of prostate disease. 15.History of rheumatoid arthritis. 16.History of vertigo. 17.History of psoriasis. 18.History of shingles. 19.History of sarcoidosis. 20.History of lung biopsy. 21.History of degenerative joint disease. 22.NO CODE, NO CPR, NO VENT. HISTORY OF PRESENT ILLNESS: This 79-year-old gentleman with a past medical history of multiple medical problems was admitted with features of atrial flutter and CHF. The patient underwent a LOGAN. The patient subsequently had a cardiac arrest and had to be mechanically intubated. The patient was suspected to have underlying coronary artery disease and coronary atherosclerosis. The patient was intubated and mechanically ventilated in the ICU. Please refer to the multiple progress notes and cardiology notes for further information. The patient subsequently because of his above-mentioned multiple complex medical issues. The prognosis was extremely guarded throughout the hospitalization. Cardioversion could not be completed because apparently the patient suffered a cardiac arrest. The LOGAN did not show any septal defect or any blood clots in any chambers. However, the prognosis was extremely guarded. MMODL / IJN: [id number] /
--- NOTE | 2019-09-02 07:16 | CDI ---
Documentation Clarification Form Date: 09/02/19 From: Edna Polanco Phone: If you have a question about this query, please contact Leelee Rodrigues, Entry Level Sales Consultant at [phone] between 8am and 5pm. Admit Date: 08/17/19 Discharge Date: 08/21/19 Patient Name: CHRISTINA OLSON Visit Number: [id number] ATTENTION: The Clinical Documentation Specialists (CDI) and [facility] Coding Staff appreciate your assistance in clarifying documentation. Please respond to the clarification below the line at the bottom and electronically sign. The CDI & [facility] Coding staff will review the response and follow-up if needed. Please note: Queries are made part of the Legal Health Record. If you have any questions, please contact the author of this message via ITS. Dear Dr. Iris Sr, This 79-year-old gentleman was admitted to the hospital with the newly detected atrial flutter associated with hypotension and shortness of breath.is documented in the [facility] report. 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 He came asystolic requiring resuscitation. Vitals: Bradycardia w weak pulse palpated. Asytole noted and CPR initiated. Treatment: CPR In your professional opinion, can you please specify the type of shock if known? Hypotension Cardiogenic Shock Cause Hypovolemic Shock Cause Other, please specify Unable to determine Cardiogenic Shock multifactorial MTDD
== END 2019-08-21 19:47 | disposition expired | DRG 308 ==
LOC: EC 13:53 → 3SCARD 15:21 → 2SICU 08-21 11:44
PROVIDERS: ADMIT Internal Medicine; ATTEND Internal Medicine
PROC: 05H633Z Insertion of Infusion Device into Left Subclavian Vein, Percutaneous Approach (ICD-10-PCS; 2019-08-21)
PROC: 4A133J1 Monitoring of Arterial Pulse, Peripheral, Percutaneous Approach (ICD-10-PCS; 2019-08-21)
PROC: 04HY32Z Insertion of Monitoring Device into Lower Artery, Percutaneous Approach (ICD-10-PCS; 2019-08-21)
PROC: 3E043XZ Introduction of Vasopressor into Central Vein, Percutaneous Approach (ICD-10-PCS; 2019-08-21)
PROC: 4A133B1 Monitoring of Arterial Pressure, Peripheral, Percutaneous Approach (ICD-10-PCS; 2019-08-21)
PROC: B246ZZ4 Ultrasonography of Right and Left Heart, Transesophageal (ICD-10-PCS; 2019-08-21)
PROC: 0D9670Z Drainage of Stomach with Drainage Device, Via Natural or Artificial Opening (ICD-10-PCS; principal; 2019-08-21 09:25)
PROC: 5A1935Z Respiratory Ventilation, Less than 24 Consecutive Hours (ICD-10-PCS; principal; 2019-08-21 09:25)
PROC: 0BH17EZ Insertion of Endotracheal Airway into Trachea, Via Natural or Artificial Opening (ICD-10-PCS; principal; 2019-08-21 09:25)
PROC: 5A12012 Performance of Cardiac Output, Single, Manual (ICD-10-PCS; principal; 2019-08-21 09:25)
DX: I48.92 Unspecified atrial flutter (principal); J15.6 Pneumonia due to other Gram-negative bacteria; J96.21 Acute and chronic respiratory failure with hypoxia; I50.43 Acute on chronic combined systolic (congestive) and diastolic (congestive) heart failure; G93.41 Metabolic encephalopathy; J44.0 Chronic obstructive pulmonary disease with (acute) lower respiratory infection; E87.1 Hypo-osmolality and hyponatremia; R57.0 Cardiogenic shock; I11.0 Hypertensive heart disease with heart failure; E11.649 Type 2 diabetes mellitus with hypoglycemia without coma; M05.10 Rheumatoid lung disease with rheumatoid arthritis of unspecified site; Z99.81 Dependence on supplemental oxygen; I46.2 Cardiac arrest due to underlying cardiac condition; I47.1 Supraventricular tachycardia; I48.0 Paroxysmal atrial fibrillation; D86.0 Sarcoidosis of lung; Z11.59 Encounter for screening for other viral diseases; E78.5 Hyperlipidemia, unspecified; I44.30 Unspecified atrioventricular block; R00.1 Bradycardia, unspecified; N40.0 Benign prostatic hyperplasia without lower urinary tract symptoms; L40.9 Psoriasis, unspecified; M19.90 Unspecified osteoarthritis, unspecified site; I25.10 Atherosclerotic heart disease of native coronary artery without angina pectoris; Z79.51 Long term (current) use of inhaled steroids; Z79.84 Long term (current) use of oral hypoglycemic drugs; Z79.890 Hormone replacement therapy; Z79.899 Other long term (current) drug therapy; Z86.19 Personal history of other infectious and parasitic diseases; Z90.49 Acquired absence of other specified parts of digestive tract; Z87.19 Personal history of other diseases of the digestive system; Z90.79 Acquired absence of other genital organ(s); Z98.890 Other specified postprocedural states; Z87.438 Personal history of other diseases of male genital organs; Z86.69 Personal history of other diseases of the nervous system and sense organs; Z88.8 Allergy status to other drugs, medicaments and biological substances; Z82.49 Family history of ischemic heart disease and other diseases of the circulatory system
CPT/HCPCS: 36415; 71045; 71046; 71250; 80048; 80053; 82805; 83735; 83880; 84484; 85025; 85027; 85610; 85730; 92960; 93005; 93306; 93312; 93320; 93325; 94002; 94640; 94760; 96361; 96365; 96366; 96375; 96376; 99285